=== PATIENT | female | born 1950 | race African-American/Black ===

== ENCOUNTER 2016-10-25 08:12 | Emergency (ER) ==
--- NOTE | 2016-10-25 09:09 | PROVIDER DOCUMENTATION ---
HPI-Headache - General Source: patient, family - History of Present Illness-Headache Headache Location: reports: frontal (R), occipital (R) Quality of Pain: reports: dull Severity: reports: mild Onset/Duration: reports: 24 hours ago Timing: reports: still present, intermittent Headache Context: reports: nothing Headache History: reports: occasional headaches Any recent trauma/injury?: reports: none Headache severity at the maximum: mild Headache Exacerbated by:: reports: nothing Modifying Factors: improves with: nothing Associated Symptoms: reports: headache, neck/back pain (R side neck pain), other (R shoulder pain). denies: short of breath, decreased ability to walk or stand, fainting, dizziness, confusion, chest pain, fatigue, fever/chills, insomnia, loss of consciousness, muscle spasms, nausea, numbness in legs/feet, paresthesia, diaphoretic, ringing in ears, seizures, sleepy, slurred speech, tingling in legs/feet, trouble walking, vomiting, vision changes, weakness Similar Symptoms Previously?: Yes Recently seen or treated by another doctor?: No <Yuliet Farris - Last Filed: 10/25/16 10:01> <Luis Vincent - Last Filed: 10/25/16 10:18> - General Chief Complaint: Headache Stated Complaint: HEAD/R SHOULDER PAIN Time Seen by Provider: 10/25/16 08:58 Allergies/Adverse Reactions: Patient Allergies Allergy/AdvReac Type Severity Reaction Status Date / Time No Known Allergies Allergy Verified 10/25/16 08:29 Home Medications: Home Medication List Medication Instructions Recorded Confirmed Last Taken Type Carvedilol 12.5 mg PO BID 08/07/16 10/25/16 09/14/16 History Folic Acid 1 mg PO DAILY 08/07/16 10/25/16 09/14/16 History Furosemide [Lasix] 40 mg PO DAILY 08/07/16 10/25/16 09/14/16 History Losartan Potassium 100 mg PO DAILY 08/07/16 10/25/16 09/14/16 History Magnesium Oxide 400 mg PO DAILY 08/07/16 10/25/16 09/14/16 History PRAVAstatin [Pravachol] 40 mg PO HS 08/07/16 10/25/16 09/13/16 History Spironolactone 12.5 mg PO DAILY 08/07/16 10/25/16 09/14/16 History Amoxicillin/Potassium Clav 1 each PO BID #20 tablet 10/25/16 Unknown Rx [Augmentin 875-125 Tablet] Aspirin 81 mg PO DAILY 10/25/16 10/25/16 Unknown History Loratadine/Pse E.r. 12 Hr 1 each PO Q12HR #12 tablet 10/25/16 Unknown Rx [Claritin-D 12 Hr] Tramadol HCl [Ultram] 50 mg PO Q6-8H PRN PRN #12 tablet 10/25/16 Unknown Rx - History of Present Illness-Headache Nature of Presenting Problem: Pt is 66 y/o F presents to the ED with R frontal ORELLANA. Pt states ORELLANA radiates to occipital R side of head and down R side of neck into the R shoulder. Pt denies injury or trauma. Pt states ORELLANA started yesterday. Pt states took 2 tylenol yesterday with mild relief and 1 aspirin today. (Yuliet Farris) Review of Systems - Adult - REVIEW OF SYSTEMS - ADULT Constitutional: denies: chills, fever Eyes: denies: blurred vision, double vision Ears, Nose, Mouth & Throat: denies: ear pain, nose pain, throat pain Cardiovascular: denies: chest pain, heart murmur, irregular heart rate Respiratory: reports: cough. denies: shortness of breath, wheezing Gastrointestinal: denies: abdominal pain, diarrhea, nausea, vomiting Genitourinary: denies: dysuria, hematuria Musculoskeletal: reports: neck pain (R side of neck), other (R shoulder pain). denies: bone pain, joint pain Integumentary: denies: hives, itching Neurological: reports: headache/migraines (ORELLANA). denies: dizziness/vertigo Psychiatric: reports: no symptoms reported Endocrine: reports: no symptoms reported Hematologic/Lymphatic: reports: no symptoms reported Allergic/Immunologic: reports: no symptoms reported All Other Systems: Reviewed and Negative <Yuliet Farris - Last Filed: 10/25/16 10:01> Past History - Adult - PAST MEDICAL HISTORY-ADULT Review of Records: reports: Nursing Assessment Review, Medications Reviewed, Social history reviewed & non-contributory. Major Childhood Illnesses: reports: denies history Cardiovascular: reports: CHF, HTN, hyperlipidemia, other (mds) Respiratory: reports: sleep apnea Gastrointestinal: reports: GERD Obstetrical/Gynecological: reports: denies history Genitourinary: reports: denies history Musculoskeletal: reports: other (MDS) Neurological: reports: denies history Endocrine/Immune: reports: Diabetes, thyroid disorder Other Conditions: reports: denies history - PRIOR SURGERIES/PROCEDURES Surgical/Procedure History: reports: joint replacement - IMMUNIZATION STATUS Childhood Immunizations: See Nurse Assessment Flu Vaccine: See Nurse Assessment - FAMILY HISTORY Family History: reviewed, not pertinent - SOCIAL HISTORY Smoking: denies Substance Use: alcohol Alcohol Use Frequency: occasionally Number of drinks per typical drinking period:: 2 drinks Living Situation: family <Yuliet Farris - Last Filed: 10/25/16 10:01> Physical Exam- Neurological - Physical Exam-Neuro Initial Vital Signs Reviewed: Yes General Appearance: appears well, alert, no apparent distress Eye Exam: bilateral eye: normal inspection, PERRL, EOMI HENMT: normocephalic/atraumatic, moist mucous membranes, normal ENT inspection, TMs normal, pharynx normal Head Injury: no evidence of injury Neck: non-tender, full range of motion, supple, normal inspection Respiratory: chest non-tender, lungs clear, normal breath sounds, no pleuratic chest pain, no respiratory distress, no accessory muscle use Cardiovascular: normal peripheral pulses, regular rate, rhythm, no edema, no gallop, no JVD, no murmur Abdominal Exam: normal bowel sounds, non tender, soft, no organomegaly, no pulsatile mass Lymphatic: no adenopathy Extremity: normal range of motion, non-tender, no calf tenderness, normal capillary refill, swelling (bilateral legs) 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: normal hearing, normal speech, PERRL Motor/Sensory: no motor deficit, no sensory deficit, no pronator drift Neurologic: grossly normal, other (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) Integumentary: normal color, normal turgor, warm/dry Psych/Mental Status: normal mood/affect, oriented x 3 <Yuliet Farris Last Filed: 10/25/16 10:01> Progress - XRAY 1 XRAY: Bilateral XRAY Study: Chest Impression: Abnormal XRAY Interpretation: lingular atelectasis, cmg - CT/MRI 1 CT Study: Head Impression: Abnormal CT Results: 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, rt mastoid and middle ear effusion <Yuliet Farris Filed: 10/25/16 10:01> <Luis Vincent - Last Filed: 10/25/16 10:18> - PLAN OF CARE/RESULTS Progress/Plan/Lab Results: Orders Category Date Time Status CHEST-1 VIEW [RAD] Stat Exams 10/25/16 08:58 Ordered HEAD W/O CONTRAST [CT] Stat Exams 10/25/16 08:58 Ordered Vital Signs - 24 hr 10/25/16 08:25 Pulse Rate 88 Respiratory 18 Rate Blood Pressure 115/81 O2 Sat by Pulse 97 Oximetry (Yuliet Farris) Departure <Yuliet Farris - Last Filed: 10/25/16 10:01> - Departure Time of Disposition Order: 10:12 Certified Medical Emergency: Emergent <Luis Vincent - Last Filed: 10/25/16 10:18> - Departure DIAGNOSIS: Otitis media with effusion Qualifiers: Laterality: right Qualified Code(s): H65.91 - Unspecified nonsuppurative otitis media, right ear Mastoiditis Qualifiers: Laterality: right Qualified Code(s): H70.91 - Unspecified mastoiditis, right ear Disposition: HOME 01 Condition: Good Additional Instructions: ED Follow Up Instructions: You have been treated by a care provider in the Emergency Department. These instructions are being provided to you so you can have an understanding of how to care for yourself upon discharge. Upon discharge from the Emergency Department, you are responsible for making arrangements for follow-up care by a physician of your choice. Take all prescribed medications as directed. Return to the Emergency Department immediately for any new or worsening symptoms. You may call the Physician Referral phone number at [phone] to obtain a list of Physicians who are taking new patients. Prescriptions: Amoxicillin/Potassium Clav [Augmentin 875-125 Tablet] 1 each PO BID #20 tablet Loratadine/Pse E.r. 12 Hr [Claritin-D 12 Hr] 1 each PO Q12HR #12 tablet Tramadol HCl [Ultram] 50 mg PO Q6-8H PRN PRN #12 tablet PRN Reason: Pain Referrals: Car Crisostomo MD [Primary Care Provider] - Instructions: Otitis Media with Effusion Attestation - Scribe Verification/Attestation Scribe:: Yuliet Farris Acting as Scribe for:: Luis Vincent Scribe documention review:: This chart was documented by a scribe and accurately reflects the service the provider performed and the decisions made by the provider. <Yuliet Farris - Last Filed: 10/25/16 10:01> Physician Attestation - Physician Attestation I, the provider, attest to the following statement:: Luis Vincent Physician documentation Attestation:: This documentation recorded by the scribe accurately reflects the service I personally performed and the decisions made by me. <Luis Vincent - Last Filed: 10/25/16 10:18>
--- NOTE | 2016-10-25 10:07 | Diag Imaging Result Document ---
PROCEDURE NAME: CHEST-1 VIEW - 10/25/2016 PA CHEST: FINDINGS: There is atelectasis in the lingula which was not present on 09/14/2016. Otherwise, there has been no significant change. IMPRESSION: Lingular atelectasis.
--- NOTE | 2016-10-25 10:24 | Diag Imaging Result Document ---
PROCEDURE NAME: HEAD W/O CONTRAST - 10/25/2016 CT OF THE HEAD WITHOUT CONTRAST: FINDINGS: There are calcifications in the vertebral and internal carotid arteries bilaterally. There is a large area of encephalomalacia in the right frontal region. There is no evidence of bleed or abnormal extra-axial fluid collection. There are no previous studies. There is a mucous retention cyst in the right sphenoid sinus. There are no air fluid levels. There is effusion throughout much of the mastoid air cells on the right and there is fluid in the middle ear cavity. The calvarium appears to be intact. IMPRESSION: No evidence of acute intracranial disease. Old ischemic change as described. Right mastoid effusion and otitis media.
[2016-10-25 10:37] VITALS: BP 147/74
== END 2016-10-25 10:37 | disposition home or self-care (01) ==
LOC: P.ED 08:12
DX: H65.91 Unspecified nonsuppurative otitis media, right ear (principal); H70.91 Unspecified mastoiditis, right ear; R51 Headache; M54.2 Cervicalgia; M25.511 Pain in right shoulder; R22.43 Localized swelling, mass and lump, lower limb, bilateral; I50.9 Heart failure, unspecified; I10 Essential (primary) hypertension; Z79.899 Other long term (current) drug therapy; E78.5 Hyperlipidemia, unspecified; E11.9 Type 2 diabetes mellitus without complications; Z79.82 Long term (current) use of aspirin; Z96.60 Presence of unspecified orthopedic joint implant
CPT/HCPCS: 70450; 71010

== ENCOUNTER 2016-11-23 02:48 | Observation (INO) ==
[2016-11-23 03:47] LABS: MANUAL DIFF NEEDED? NO
[2016-11-23 03:49] LABS: BASO% 0.6 % (0.0-0.8); EOS# 0.09 X1000 (0.0-0.7); EOS% 1.4 % (0.0-10.0); HEMATOCRIT 31.2 % (37.0-47.0); HEMOGLOBIN 9.7 g/dL (12.0-16.0); IMM GRAN# 0.02 X1000 (0.0-0.04); IMM GRAN% 0.3 % (0.0-0.5); LYMPH# 2.23 X1000 (1.2-3.4); MCH 26.4 PG (27-31); MCHC 31.1 g/dL (33-37); MONO# 0.58 X1000 (0.11-0.59); MONO% 9.1 % (1.7-9.3); MPV 9.4 FL (7.4-10.4); NEUT% 53.6 % (42.2-75.2); PLT 164 X1000 (130-400); RBC 3.67 XMIL (4.2-5.4)
--- NOTE | 2016-11-23 03:57 | EKG Report ---
Test Performed on : 11/23/2016 03:43:14 AM Test Reason : cough, sob Blood Pressure : / mmHG Vent. Rate : 104 BPM Atrial Rate : 104 BPM P-R Int : 164 ms QRS Dur : 114 ms QT Int : 358 ms P-R-T Axes : 059 -21 141 degrees QTc Int : 470 ms Sinus tachycardia. Anterior infarct , age undetermined T wave abnormality, consider lateral ischemia Abnormal ECG When compared with ECG of 03-NOV-2016 23:22, No significant change was found Unconfirmed Result
[2016-11-23 04:03] LABS: ALBUMIN 3.7 g/dL (3.5-5.0); CALCIUM 8.8 mg/dL (8.8-10.2); POTASSIUM 4.2 mmol/L (3.5-5.1); TOTAL BILIRUBIN 0.5 mg/dL (0.20-1.00); TOTAL PROTEIN 8.2 g/dL (6.3-8.3)
--- NOTE | 2016-11-23 04:25 | PROVIDER DOCUMENTATION ---
HPI-Cardiac General - General Chief Complaint: Cough Stated Complaint: UNCONTROLABLE COUGH/HEART PATIEN Time Seen by Provider: 11/23/16 04:18 Source: patient, family Allergies/Adverse Reactions: Patient Allergies Allergy/AdvReac Type Severity Reaction Status Date / Time No Known Allergies Allergy Verified 10/25/16 08:29 Home Medications: Home Medication List Medication Instructions Recorded Confirmed Last Taken Type Folic Acid 1 mg PO DAILY 08/07/16 11/23/16 09/14/16 History Magnesium Oxide 400 mg PO DAILY 08/07/16 11/23/16 09/14/16 History PRAVAstatin [Pravachol] 40 mg PO HS 08/07/16 11/23/16 09/13/16 History Spironolactone 25 mg PO DAILY 08/07/16 11/23/16 09/14/16 History Aspirin 81 mg PO DAILY 10/25/16 11/23/16 Unknown History Levothyroxine [Synthroid] 100 microgm PO DAILY@0700 11/23/16 11/23/16 Unknown History Losartan/Hydrochlorothiazide 1 each PO DAILY 11/23/16 11/23/16 Unknown History [Losartan-Hctz 100-12.5 mg Tab] Mirtazapine [Remeron] 15 mg PO QHS 11/23/16 11/23/16 Unknown History Carvedilol [Coreg] 12.5 mg PO DAILY #90 tablet 11/26/16 Unknown Rx - History of Present Illness-Cardiac Nature of Presenting Problem: has had prolonged coughing loosing her breath hx ckdz and hx chfdz nochest pain soft pitting edema in lower extremities Quality of Pain: reports: none Onset/Duration: last night Timing: improving Context/Activities at Onset: reports: sleep Modifying Factors: worse with: movement Recent use of:: reports: no stimulants Nitro Today/Relief: reports: no nitro taken today Aspirin Treatment Today: reports: no aspirin today Prior Chest Pain/Cardiac Workup: reports: echocardiography, stress test Associated Symptoms: reports: edema, shortness of breath, weakness Similar Symptoms Previously?: Yes Recently Seen Here or By Another Healthcare Provider: Yes Review of Systems - Adult - REVIEW OF SYSTEMS - ADULT Constitutional: reports: no symptoms reported, weight gain Eyes: reports: no symptoms reported, dry eyes Cardiovascular: reports: edema, heart murmur, orthopnea Respiratory: reports: cough, dyspnea on exertion, shortness of breath. denies: hemoptysis, pleurisy Gastrointestinal: reports: no symptoms reported Genitourinary: reports: no symptoms reported Musculoskeletal: reports: no symptoms reported Integumentary: reports: no symptoms reported Neurological: reports: no symptoms reported Psychiatric: reports: no symptoms reported Endocrine: reports: no symptoms reported Hematologic/Lymphatic: reports: no symptoms reported Allergic/Immunologic: reports: no symptoms reported Past History - Adult - PAST MEDICAL HISTORY-ADULT Review of Records: reports: Nursing Assessment Review, Medications Reviewed, Social history reviewed & non-contributory. Major Childhood Illnesses: reports: denies history Cardiovascular: reports: CHF, HTN, hyperlipidemia, other (mds) Respiratory: reports: sleep apnea Gastrointestinal: reports: GERD Obstetrical/Gynecological: reports: denies history Genitourinary: reports: denies history, kidney disease Musculoskeletal: reports: other (MDS) Neurological: reports: denies history Psychiatric: reports: denies history Endocrine/Immune: reports: Diabetes, thyroid disorder Other Conditions: reports: denies history - PRIOR SURGERIES/PROCEDURES Surgical/Procedure History: reports: joint replacement (L hip/pelvis) - IMMUNIZATION STATUS Childhood Immunizations: See Nurse Assessment Flu Vaccine: See Nurse Assessment - FAMILY HISTORY Family History: reviewed, not pertinent - SOCIAL HISTORY Smoking: non-smoker Substance Use: none/never Alcohol Use Frequency: never Physical Exam-General - PHYSICAL EXAM-ADULT Initial Vital Signs Reviewed: Yes - CONSTITUTIONAL General Appearance: appears well, alert, no apparent distress - EYES Eyes: PERRL/EOMI, pink conjunctivae - HEAD, EARS, NOSE, MOUTH & THROAT HENMT: normocephalic/atraumatic - NECK Neck: supple - RESPIRATORY Respiratory: decreased breath sounds, rhonchi, increased rate - CARDIOVASCULAR Cardiovascular: normal peripheral pulses, regular rate, rhythm - GASTROINTESTINAL (ABDOMEN) Abdominal Exam: soft - LYMPHATIC Lymphatic: no adenopathy - MUSCULOSKELETAL Back Exam: normal inspection Extremity: pedal edema, swelling - SKIN Integumentary: normal color, normal turgor - NEUROLOGIC Neurologic: grossly normal - PSYCHIATRIC Psych/Mental Status: normal mood/affect Progress - PLAN OF CARE/RESULTS Result Diagrams: 11/26/16 06:00 11/26/16 06:00 - EKG 1 Time of EKG reading by physician:: 04:45 EKG Read and Signed by:: Car Crisostomo EKG Interpretation (*Must complete 3 of following elements*): Abnormal Rate: 104 [place]: normal QRS: poor R wave progression FL Interval: normal ST Wave: non-specific ST changes Prior EKG Comparison: no prior EKG - XRAY 1 XRAY Study: Chest Impression: Abnormal (CHF, CARDIOMEGALY) Departure - Departure Time of Disposition Decision: 07:32 DIAGNOSIS: Shortness of breath, Weakness, Anemia Disposition: ADMITTED INPATIENT 09 Certified Medical Emergency: Emergent Condition: Good
[2016-11-23] MEDS ORDERED: LASIX IV ONE ×2 (04:28→20:37)
[2016-11-23 06:23] LABS: BILIRUBIN URINE NEGATIVE (NEGATIVE); BLOOD URINE 4+ (NEGATIVE); CLARITY VERY CLOUDY (CLEAR); COLOR YELLOW; GLUCOSE URINE NEGATIVE (NEGATIVE); LEUKOCYTES URINE 2+ (NEGATIVE); NITRITE URINE NEGATIVE (NEGATIVE); PROTEIN URINE TRACE mg/dL (NEGATIVE); SP GRAVITY URINE 1.015; UROBILINOGEN URINE NORMAL
[2016-11-23 06:26] LABS: URINE CULTURE PL NEEDED? YES; URINE EPITHELIAL CELLS <10 /HPF (<10); URINE RBC TNTC /HPF (<10)
[2016-11-23] MEDS ORDERED: NS 1,000 ML IV ONE (06:26)
[2016-11-23 06:27] LABS: URINE SOURCE CATH
[2016-11-23] MEDS ORDERED: ALDACTONE PO ONE (07:38)
[2016-11-23] MEDS ORDERED: MAG-OX PO ONE (07:38)
[2016-11-23] MEDS ORDERED: COREG PO ONE (07:38)
[2016-11-23] MEDS ORDERED: PRAVACHOL PO ONE (07:38)
[2016-11-23] MEDS ORDERED: COZAAR PO ONE (07:38)
[2016-11-23] MEDS ORDERED: ASPIRIN PO ONE (07:38)
--- NOTE | 2016-11-23 09:08 | Diag Imaging Result Document ---
PROCEDURE NAME: CHEST-PORTABLE - 11/23/2016 AP PORTABLE CHEST ERECT, 11/23/2016 AT 0322 HOURS: FINDINGS: There is cardiomegaly. The inspiration is less optimal than on 11/04/2016. This is probably responsible for any change in the appearance of the lungs. IMPRESSION: Poor inspiration. Cardiomegaly.
[2016-11-23] MEDS ORDERED: NS 1,000 ML ONE (09:36)
[2016-11-23] MEDS ORDERED: HALL'S COUGH LOZENGE MT PRN (19:13)
[2016-11-23] MEDS: REMERON PO SCH (21:30)
[2016-11-23] MEDS: PRAVACHOL PO SCH (21:30)
[2016-11-24] MEDS: SYNTHROID PO SCH (06:16)
[2016-11-24] MEDS ORDERED: HYDROCHLOROTHIAZIDE PO SCH (09:00)
[2016-11-24] MEDS ORDERED: LOSARTAN PO SCH (09:00)
[2016-11-24] MEDS ORDERED: CIPRO PO SCH (09:15)
[2016-11-24] MEDS: FOLIC ACID PO SCH (10:39)
[2016-11-24] MEDS: COZAAR PO SCH (10:39)
[2016-11-24] MEDS: MAG-OX PO SCH (10:40)
[2016-11-24] MEDS: ASPIRIN PO SCH (10:40)
[2016-11-24] MEDS: ALDACTONE PO SCH (10:40)
[2016-11-24] MEDS: HYDROCHLOROTHIAZIDE PO SCH (10:40)
[2016-11-24] MEDS: COREG PO SCH (10:40)
--- NOTE | 2016-11-24 10:42 | Diag Imaging Result Document ---
PROCEDURE NAME: CHEST-2 VIEWS - 11/24/2016 CHEST, TWO VIEWS: COMPARISON: 11/23/2016. FINDINGS: There is mild cardiomegaly, consistent with cardiomyopathy of pericardial effusion, unchanged from multiple prior studies. The pulmonary vasculature is not congested. There is stable linear fibrosis, left midlung zone. No focal consolidation, effusion, or pneumothorax is identified. IMPRESSION: Stable chest with left fibrosis and marked cardiomegaly.
[2016-11-24 12:33] LABS: ALBUMIN 3.7 g/dL (3.5-5.0); CALCIUM 9.1 mg/dL (8.8-10.2); POTASSIUM 4.4 mmol/L (3.5-5.1); TOTAL BILIRUBIN 1.1 mg/dL (0.20-1.00); TOTAL PROTEIN 8.2 g/dL (6.3-8.3)
[2016-11-24 17:03] LABS: BE 1.3 mmoll (-3.0-3.0); BLOOD TYPE ARTERIAL; METHB 1.2 % (0.0-1.5); O2(CT) 13.1 mL/dL (15.0-23.0); PCO2(98.6) 32 mmHg (35-45); PO2(98.6) 82 mmHg (60-100); SAMPLE BLOOD; SAO2 97.8 % (95.0-100.0); THB 9.8 g/dL (11.5-17.4); pH(98.6) 7.49 (7.35-7.45)
[2016-11-24 17:09] LABS: ALLEN TEST YES; DRAW SITE R RADIAL; MODALITY ROOM AIR
[2016-11-24] MEDS: REMERON PO SCH (21:03)
[2016-11-24] MEDS: CIPRO PO SCH (21:03)
[2016-11-24] MEDS: PRAVACHOL PO SCH (21:03)
[2016-11-25] MEDS: SYNTHROID PO SCH (06:14)
[2016-11-25] MEDS ORDERED: TYLENOL PO ONE (06:24)
[2016-11-25] MEDS: HYDROCHLOROTHIAZIDE PO SCH (09:35)
[2016-11-25] MEDS: ASPIRIN PO SCH (09:35)
[2016-11-25] MEDS: FOLIC ACID PO SCH (09:35)
[2016-11-25] MEDS: COZAAR PO SCH (09:35)
[2016-11-25] MEDS: ALDACTONE PO SCH (09:35)
[2016-11-25] MEDS: MAG-OX PO SCH (09:35)
[2016-11-25] MEDS: CIPRO PO SCH ×2 (09:35→21:35)
[2016-11-25] MEDS: COREG PO SCH (09:36)
[2016-11-25 13:21] LABS: ALBUMIN 3.6 g/dL (3.5-5.0); CALCIUM 8.9 mg/dL (8.8-10.2); POTASSIUM 3.8 mmol/L (3.5-5.1); TOTAL BILIRUBIN 1.1 mg/dL (0.20-1.00); TOTAL PROTEIN 7.9 g/dL (6.3-8.3)
[2016-11-25] MEDS ORDERED: NS 500 ML IV SCH (17:13)
[2016-11-25] MEDS: PRAVACHOL PO SCH (21:35)
[2016-11-25] MEDS: REMERON PO SCH (21:35)
[2016-11-26] MEDS: SYNTHROID PO SCH (06:06)
[2016-11-26 06:22] LABS: HEMATOCRIT 29.4 % (37.0-47.0); MCH 25.9 PG (27-31); MCHC 30.6 g/dL (33-37); MCV 84.7 FL (81-99); MPV 10.1 FL (7.4-10.4); RBC 3.47 XMIL (4.2-5.4)
[2016-11-26 06:29] LABS: HEMOGLOBIN A1C 4.8 % (4.8-6.0)
[2016-11-26 06:50] LABS: ALBUMIN 3.5 g/dL (3.5-5.0); MAGNESIUM 2.2 mg/dL (1.5-2.7); POTASSIUM 3.5 mmol/L (3.5-5.1); TOTAL BILIRUBIN 0.5 mg/dL (0.20-1.00)
[2016-11-26] MEDS: MAG-OX PO SCH (09:53)
[2016-11-26] MEDS: COZAAR PO SCH (09:53)
[2016-11-26] MEDS: ASPIRIN PO SCH (09:53)
[2016-11-26] MEDS: CIPRO PO SCH ×2 (09:53→20:22)
[2016-11-26] MEDS: HYDROCHLOROTHIAZIDE PO SCH (09:53)
[2016-11-26] MEDS: COREG PO SCH (09:53)
[2016-11-26] MEDS: FOLIC ACID PO SCH (09:54)
[2016-11-26] MEDS: ALDACTONE PO SCH (09:54)
[2016-11-26] MEDS ORDERED: TYLENOL PO PRN (09:58)
[2016-11-26 17:27] VITALS: BP 127/71
[2016-11-26] MEDS: REMERON PO SCH (20:22)
[2016-11-26] MEDS: PRAVACHOL PO SCH (20:22)
--- NOTE | 2016-12-10 07:43 | HISTORY AND PHYSICAL ---
An ER admission, who presented to the ER complaining of cough primary, brought in by her family. She states that she has been having a cough that is prolonged, hard to interrupt, causing her to lose her breath. She has a history of hypertension, chronic kidney disease, and heart failure. She denies any chest pain. She has been swelling some in her lower extremities. This is all pretty much started the night before her presentation while she was asleep. Her breathing is worse with activity. She has had spells similar to this in the past. She has had multiple workups for ischemia. She has had treadmills and echos. Primarily has a an ejection fraction in the 20s and GFR in the 20s likewise. She also is anemic. All these add up. She is a nonsmoker. While she was in the emergency room she had an electrocardiogram that showed a heart rate of 104, normal axis, poor R-wave progression, nonspecific ST-segment changes. Her chest x-ray was abnormal with cardiomegaly and pulmonary congestion. She was noted to be anemic with a hematocrit of 29.4, white count 7100, platelet count was 127,000. Her electrolytes were sodium of 138, potassium 3.5, chloride 104, CO2 of 23, BUN 55, creatinine 2.2, with a glucose of 98. So it is felt that with combination bone marrow issues and renal insufficiency, congestive failure issues are all contributing to her cough and she was admitted from the emergency room. REVIEW OF SYSTEMS: General Appearance: She has had some recent weight gain, but no fever or chills. Eyes: Vision no change in visual acuity. She has no irritation in her eyes. Cardiovascular: She has no history of a murmur, edema, orthopnea, paroxysmal nocturnal dyspnea, dyspnea on exertion. Respiratory: No cough. She denies any hemoptysis or pleurisy. Gastrointestinal: No nausea, vomiting, diarrhea, or constipation. Genitourinary: No dysuria, hematuria, polyuria, or pyuria. Musculoskeletal: No back pain, joint aches, joint swelling, or gout. Skin: No skin rashes or lesions. Neurological: No focal deficits. No history of seizures. No syncope. No migraines. Psychiatric: Negative. Endocrine: No polyuria, polydipsia, polyphagia. No heat or cold intolerance. Hematological: She has a chronic anemia, which is probably myelodysplasia. ALLERGIES: No asthma. No hayfever symptoms. PAST MEDICAL HISTORY: She has a history of congestive heart failure, hypertension, dyslipidemia, sleep apnea, reflux disease, kidney renal insufficiency, and myelodysplasia. She also has diabetes and thyroid condition. She has had a joint replacement in her left hip in the past. She is a nonsmoker and nondrinker. Does not abuse substances. FAMILY HISTORY: Not pertinent. PHYSICAL EXAMINATION: HEENT: On admission her head was normocephalic. Eyes were pupils equal, round, and reactive to light and accommodation. Extraocular movements intact. SC was pale. Nares patent. TMs intact. She was normocephalic. NECK: Supple without jugular venous distention. Midline trachea. No lymphadenopathy. No thyromegaly. RESPIRATORY: She had diminished breath sounds and rhonchi. She was somewhat tachypneic. EXTREMITIES: Peripheral pulses were intact. Diminished somewhat in her legs. CARDIOVASCULAR: Regular rate was appreciated in her pulse and rhythm. ABDOMEN: Soft. No hepatosplenomegaly. No costovertebral angle tenderness. EXTREMITIES: Negative for clubbing or cyanosis. She 2+ edema. LYMPHATICS: Negative. SKIN: Clear. NEUROLOGICAL EXAMINATION: Was nonfocal and normal. ADMISSION DIAGNOSES: 1. Generalized weakness. 2. Renal insufficiency. 3. Heart failure. 4. Anemia from myelodysplasia. 5. High blood pressure. 6. Diabetes. 7. Thyroid disease. cc: Car Crisostomo MD
--- NOTE | 2016-12-10 08:01 | DISCHARGE SUMMARY ---
ADMISSION DATE: 11/23/2016 DISCHARGE DATE: 11/26/2016 The patient was hospitalized after presenting to the emergency room complaining of some difficulty breathing and coughing primarily, unassociated with fever or chills. Has some edema. She has a background of renal insufficiency with a GFR in the 20s. She has also a history of systolic heart failure with an ejection fracture likewise in the 20s. She has chronic anemia from myelodysplastic syndrome. She also has a history of hypertension, dyslipidemia, and thyroid disease. In the ER, she had cardiomegaly. She had some pulmonary venous hypertension. So, she was admitted for therapy. Her reports included the following: She had a chest x-ray on admission that showed poor inspiration and cardiomegalia. She has an electrocardiogram on admission which showed a sinus tachycardia of 104, poor R-wave progression across the precordium, nonspecific ST-T wave changes, unchanged from previous electrocardiograms. Her followup chest x-ray on 11/24 revealed stable chest with left fibrosis, marked cardiomegaly. Her microbiology she grew out Klebsiella pneumoniae and a urine culture universally sensitive to all antibiotics, except ampicillin. Her white count was 6380, hematocrit was 31.2. Her differential with 53 polys, 35 lymphocytes, and 9% monos. Followup on 11/26 hematocrit was 29.4, white count was 7100, platelet count was 127,000. Blood gases pH was 7.49, pCO2 32, pO2 82 on room air. Carboxyhemoglobin was 2.4. Chemistries when she arrived, she was prerenal with a BUN of 55, creatinine is 2.2. Her CO2 was 23. Anion gap is 11. Sodium was 138, potassium 3.5, chloride 104, glucose 98. She had a B-type natriuretic peptide of 16,414. Had mild liver elevation. AST was 46, alkaline phosphatase was 198. Proteins were negative. Magnesium was 2.2. Throughout the stay her renal function was elevated, and with diuresing. Got up to 55/2.2, starting out when she presented at 36.19. Her medications on admission were as follows: She is given Lasix 40 p.o. IV and was given it IV on a daily basis. She was continued on her Coreg, 100 mcg of levothyroxine, losartan 112 5, spironolactone, and aspirin. She was taking Cipro 250 for her urinary tract infection. She was just generally weak. The increased diuresis did not really seem to make much difference. I think she was simply probably over-diuresed and was weak on that basis. We have spoken to her and Dr. Melton about proceeding and evaluating her for dialysis. She was discharged on some antibiotics to take for her urinary tract infection. Will follow up in the office. I have advised her to leave off her Lasix. We will see what she does in a couple days. cc: Car Crisostomo MD
== END 2016-11-26 20:30 | disposition home or self-care (01) ==
LOC: P.ED 02:48 → P.MEDSURG 02:48
PROVIDERS: ADMIT Internal Medicine; ATTEND Internal Medicine

== ENCOUNTER 2018-12-09 07:31 | Inpatient (IN) ==
[2018-12-09] MEDS ORDERED: DIPRIVAN 1% ONE (07:34)
[2018-12-09] MEDS ORDERED: QUELICIN (DOSE) ONE (07:38)
[2018-12-09] MEDS ORDERED: ZEMURON ONE (07:39)
[2018-12-09] MEDS ORDERED: LR 500 ML ONE (07:58)
[2018-12-09] MEDS ORDERED: KEFZOL 2 GM/D5W 2 GM/50 ML IVPB ONE (07:59)
[2018-12-09] MEDS ORDERED: SENSORCAINE-MPF 0.5%/EPI 1:200,000 ONE (08:49)
[2018-12-09] MEDS ORDERED: LR 1,000 ML ONE (08:49)
[2018-12-09] MEDS ORDERED: SODIUM CHLORIDE 0.9% ONE (08:49)
[2018-12-09] MEDS ORDERED: AMIDATE ONE (09:17)
[2018-12-09] MEDS ORDERED: ZOFRAN ONE (09:41)
[2018-12-09] MEDS ORDERED: OFIRMEV 1000 MG/ISOTONIC SOLN 1,000 MG/100 ML BOTTLE ONE (09:41)
[2018-12-09] MEDS ORDERED: EPHEDRINE ONE (09:42)
[2018-12-09] MEDS ORDERED: NEO-SYNEPHRINE ONE (09:57)
[2018-12-09] MEDS ORDERED: SODIUM CHLORIDE 0.9% 10 ML ONE (09:57)
[2018-12-09] MEDS ORDERED: ROBINUL ONE (10:37)
[2018-12-09] MEDS: MORPHINE ONE ×2 (11:47→11:56)
[2018-12-09] MEDS ORDERED: ZOFRAN IV PRN (12:27)
--- NOTE | 2018-12-09 12:55 | Diag Imaging Result Doc PS360 ---
EXAM: OPERATIVE CHOLANGIOGRAM INDICATION: CHOLECYSTITIS TECHNIQUE: COMPARISON: None. FINDINGS: Two spot fluoroscopic images of the opacified common bile duct were provided, which were performed during cholecystectomy by Dr. Giancarlo Muse. The common bile duct appears normal in course and caliber. No stricture or filling defect is identified. IMPRESSION: As above. Please correlate with live fluoroscopic imaging. Electronically signed by Andrew Cardenas 12/09/2018 12:53 PM
--- NOTE | 2018-12-09 18:51 | OPERATIVE NOTE ---
PROCEDURE DATE: 12/09/2018 PREOPERATIVE DIAGNOSIS: Symptomatic cholelithiasis. POSTOPERATIVE DIAGNOSIS: Symptomatic cholelithiasis and chronic cholecystitis. PROCEDURE PERFORMED: Laparoscopic cholecystectomy with cholangiogram. ESTIMATED BLOOD LOSS: 10 mL. SPECIMENS: Gallbladder. ANESTHESIA: General. INDICATION: This is a 68-year-old female who has had epigastric right upper quadrant abdominal pain and nausea for some time. Imaging showed gallstones. OPERATIVE FINDINGS: There was a densely inflamed gallbladder with thickened rind but very thin walled. The gallbladder itself had numerous large stones within it. On cholangiogram, the most opacified image failed to save. There were some other spot images obtained after decannulating the cystic duct for documentation purposes, but findings showed a very long cystic duct that seemed to originate off of the right hepatic duct with flow of contrast through a normal caliber bile duct and into the duodenum with no filling defects. Retrograde flow in the common hepatic duct was normal. OPERATIVE NOTE: Risks, benefits and alternatives were discussed with patient. She consented to the procedure. She was seen preoperatively. Surgical site was confirmed. She was taken to the operating room, placed in supine position. General anesthesia induced without complication. All bony prominences were padded. Her abdomen was prepped with chlorhexidine solution, draped in usual fashion. After time-out, we made a supraumbilical incision, carried this down to the fascia. The fascia was incised and entered in a controlled fashion. The abdomen was insufflated with 15 mmHg. She tolerated this. Three additional trocars of 5 mm were placed, one in the epigastrium, one in midclavicular line off the costal margin. We took down omental adhesions, took quite amount of time to expose the gallbladder, but we were able to retract it cephalad. We then scored the peritoneum, which was very thickened, exposing the infundibulum and retracting this. Hole was made in the infundibulum, but this did allow us to inspect within the lumen of the gallbladder. We continued to retract this down the patient's right and were able to encircle the infundibulum and performed a cholangiogram through this. We were well away from the common bile duct, and this corroborated with her gross anatomy, and we at this point transected the infundibulum of the gallbladder, closing this stump with an Endo loop. This was where the cholangiogram was performed through. Then placed a clip over this to doubly close it and also to niko where she had developed a bile leak. We could confirm its location from the cystic duct stump and then removed the gallbladder. There was some spillage of bile. It was suctioned until clear. We collected the stones. There were mainly 2 large stones that we collected. Placed in an EndoCatch bag. We copiously irrigated the abdomen. There was no obvious bile leakage. We elected to place a Phil drain here, and hemostasis was noted. We removed the remaining trocars, deflated them and brought the gallbladder out through the umbilical incision. We did have to enlarge this slightly to get the stones out. We closed the fascia with interrupted 0 Vicryl sutures. Skin was closed with 4-0 Monocryl. Drain was clear at the end of the case. We will plan to admit her given her cardiac history and the acutely inflamed nature of her gallbladder. cc: Lavon Muse MD
[2018-12-09] MEDS: BETAPACE PO SCH (20:54)
[2018-12-09] MEDS: PRAVACHOL PO SCH (20:54)
[2018-12-09] MEDS: COREG PO SCH (20:54)
[2018-12-09] MEDS: PERIDEX MT SCH (20:56)
[2018-12-10 01:22] LABS: URINE SOURCE CLEAN CATCH
[2018-12-10 01:25] LABS: BILIRUBIN URINE NEGATIVE (NEGATIVE); BLOOD URINE NEGATIVE (NEGATIVE); COLOR YELLOW; GLUCOSE URINE NEGATIVE (NEGATIVE); KETONE URINE NEGATIVE (NEGATIVE); LEUKOCYTES URINE SMALL (NEGATIVE); NITRITE URINE NEGATIVE (NEGATIVE); PROTEIN URINE 100 mg/dL (NEGATIVE); SP GRAVITY URINE 1.018; TURBIDITY URINE HAZY (CLEAR); UROBILINOGEN URINE NORMAL (NORMAL)
[2018-12-10 01:27] LABS: UR EPITHELIAL CELLS >10 /HPF (<10); URINE BACTERIA 2+ /HPF; URINE RBC <10 /HPF (<10); URINE WBC <10 /HPF (<10)
[2018-12-10] MEDS: SYNTHROID PO SCH (06:17)
[2018-12-10] MEDS: LOVENOX SUBQ SCH (08:47)
[2018-12-10] MEDS: COREG PO SCH ×2 (08:47→20:52)
[2018-12-10] MEDS: BETAPACE PO SCH ×2 (08:47→20:52)
[2018-12-10] MEDS: PERIDEX MT SCH ×2 (08:48→20:52)
[2018-12-10] MEDS: LANOXIN PO SCH (08:48)
[2018-12-10] MEDS: MAG-OX PO SCH (08:48)
[2018-12-10] MEDS: ALDACTONE PO SCH (08:48)
--- NOTE | 2018-12-10 09:37 | GENERAL SURGERY PROGRESS NOTE ---
DATE: 12/10/2018 SUBJECTIVE: Doing okay overnight. Hemodynamically stable. She did have some urinary retention requiring straight catheterization with 500 mL noted. OBJECTIVE: Abdomen is soft. STACI drain serosanguineous. ASSESSMENT/PLAN: A 68-year-old female status post laparoscopic cholecystectomy. She does have cardiomyopathy. We will monitor her today. If she is able to void, ambulate, and tolerate a diet, we will let her go home with her drain. cc: Lavon Muse MD
[2018-12-10] MEDS: NORCO-7.5 PO PRN (18:26)
[2018-12-10] MEDS: PRAVACHOL PO SCH (20:52)
[2018-12-11] MEDS: NORCO-7.5 PO PRN ×2 (02:16→21:44)
[2018-12-11] MEDS: SYNTHROID PO SCH (06:08)
[2018-12-11] MEDS: LOVENOX SUBQ SCH (08:18)
[2018-12-11] MEDS: PERIDEX MT SCH ×2 (08:18→21:45)
[2018-12-11] MEDS: ALDACTONE PO SCH (08:18)
[2018-12-11] MEDS: COREG PO SCH ×3 (08:18→21:44)
[2018-12-11] MEDS: BETAPACE PO SCH ×2 (08:18→21:44)
[2018-12-11] MEDS: MAG-OX PO SCH (08:19)
[2018-12-11] MEDS: LANOXIN PO SCH (08:19)
--- NOTE | 2018-12-11 15:16 | CONSULTATION ---
DATE OF CONSULTATION: 12/11/2018 CHIEF COMPLAINT: Urinary retention. HISTORY OF PRESENT ILLNESS: Ms. Arias is a 68-year-old with history of congestive heart failure, hypertension, chronic kidney disease, hyperlipidemia, sleep apnea, gastroesophageal reflux disease, type 2 diabetes, hypothyroidism, who presents in consultation regarding urinary retention. The patient underwent a surgery for gallstones on Sunday and has had indwelling catheter during and subsequently removed. The patient required clean intermittent catheterization twice since then, as she has had minimal urinary output. The patient urinates spontaneously, but usually has low volumes. Has had multiple bladder scans that have shown anywhere from 400 to over 500 mL of in her bladder. The patient seemingly is not emptying her bladder adequately. In talking with the patient, the patient denies ever having issues with urination recently. The patient was previously seen by a urologist and underwent stretching of her bladder. She is not sure when this was or where it was completed. The patient denies any dysuria, hematuria, kidney stones, history of recurrent urinary tract infections and overall feels like she is voiding normally. She denies constipation or difficult with defecation. Has history of T2DM. ALLERGIES: 1. Valsartan. 2. Sacubitril. MEDICATIONS: 1. Eliquis 2.5 mg b.i.d. 2. Carvedilol 25 mg daily. 3. Losartan 100 mg daily. 4. Lasix 40 mg daily. 5. Sotalol 80 mg daily. 6. Synthroid 100 mcg daily. 7. Spironolactone. 8. Promethazine. 9. Trazodone. 10. Pravastatin. 11. Magnesium oxide. PAST MEDICAL HISTORY: 1. Atrial fibrillation, on Eliquis. 2. Coronary artery disease. 3. Congestive heart failure. 4. CKD. 5. Hypertension. 6. Type 2 diabetes. 7. Hypothyroidism. PAST SURGICAL HISTORY: 1. Implanted defibrillator. 2. Left hip repair. 3. Pelvis open reduction and internal fixation. 4. Bilateral tubal ligation. 5. Laparoscopic cholecystectomy. FAMILY HISTORY: Denies family history of malignancy. SOCIAL HISTORY: Denies alcohol, tobacco, or illicit drug use. PHYSICAL EXAMINATION: Vital signs: Temperature 98.1 degrees, heart rate 57, blood pressure 85/51, oxygen saturation 94% on room air. General: No acute distress. Resting comfortably in bed, alert and oriented x3. Respiratory: Good respiratory effort without audible wheezing or rales. HEENT: Normocephalic, atraumatic. Pupils equal, round, reactive to light. The patient does have lateral deviation of her right eye. Neck: Trachea midline without obvious deformities. Cardiovascular: S1, S2 heart sound with regular rate and rhythm. Abdomen: Soft, nontender, nondistended. No palpable masses. Phil drain in place coming from the right upper quadrant. Multiple laparoscopic incisions visualized. Genitourinary: No suprapubic tenderness. No CVA tenderness. Musculoskeletal: Moving all extremities. The patient does have 2+ lower extremity edema to below the knee. Neurologic: Grossly motor and sensory intact. LABORATORY DATA: The patient has a baseline creatinine 1.8 to 1.9. Urinalysis from catheterization 50 of protein, negative blood, negative nitrites, negative glucose, small amount of leukocytes and 2+ bacteria, greater than 10 epithelial cells. IMAGING: CT of the abdomen and pelvis reviewed from 11/06/2018, which showed no evidence of hydronephrosis, obstructing stones or renal masses. PLAN: Ms. Arias is a 68-year-old with congestive heart failure, coronary artery disease, chronic kidney disease, atrial fibrillation on Eliquis, hypothyroidism, chronic kidney disease, type 2 diabetes, who presents in consultation regarding urinary retention. The patient has required several episodes of straight catheterization since admission. After straight catheterization, the patient was unable to urinate and had PVRs measuring greater than 400 mL. The patient has required straight catheterization twice previously and still has not urinated after being straight catheterized this morning at 2 a.m. Bladder scan was performed which showed 400 mL in her bladder. Recommended placement of indwelling catheter and follow up in the outpatient setting. The patient likely has urinary retention related to being hospitalized. The patient denies any voiding complaints previously. The patient has been seen by a urologist previously for dilation of her bladder, uncertain of the etiology of this or when this was performed. The patient has no suprapubic tenderness or CVA tenderness and does not feel uncomfortable with her bladder being full. The patient may have some underlying autonomic neuropathy that is leading to urinary retention. If the patient continues to have issues with urination, would perform cystoscopy and possibly would require urodynamics for evaluation. We will have Nursing staff place catheter and will follow up in the outpatient setting. Please call with questions or concerns. cc: MD Lavon Montero MD [facility]
--- NOTE | 2018-12-11 18:11 | GENERAL SURGERY PROGRESS NOTE ---
DATE: 12/11/2018 SUBJECTIVE: Still having some urinary retention high postvoid residuals. OBJECTIVE: Abdomen is soft. Her STACI drain is serosanguineous. No fevers. No tachycardia. Blood pressure has been okay. ASSESSMENT AND PLAN: I have asked Dr. Vigil to see her in regards to her urinary retention. We will follow up his recommendations. Depending on what he finds and recommends, we will determine her disposition. Surgically she is doing well, otherwise. Tolerating a diet with serosanguineous drain. We will monitor her closely. Maybe home today or tomorrow. cc: Lavon Muse MD [facility]
[2018-12-11] MEDS: PRAVACHOL PO SCH (21:44)
[2018-12-12] MEDS: SYNTHROID PO SCH (06:05)
[2018-12-12] MEDS: NORCO-7.5 PO PRN ×2 (08:02→21:31)
[2018-12-12] MEDS: MAG-OX PO SCH (08:03)
[2018-12-12] MEDS: ALDACTONE PO SCH (08:03)
[2018-12-12] MEDS: COREG PO SCH ×2 (08:04→21:18)
[2018-12-12] MEDS: PERIDEX MT SCH ×2 (08:04→21:18)
[2018-12-12] MEDS: LOVENOX SUBQ SCH (08:04)
[2018-12-12] MEDS: BETAPACE PO SCH (08:04)
[2018-12-12] MEDS: LANOXIN PO SCH (08:04)
--- NOTE | 2018-12-12 18:27 | PROGRESS NOTE ---
DATE: 12/12/2018 SUBJECTIVE: The patient was a consult yesterday regarding urinary retention. The patient had a bladder scan done yesterday that showed 400 mL in her bladder. The patient was unable to urinate. A Fowler catheter was inserted, with a good amount of drainage overnight. The patient has made 850 mL that was recorded. The patient denies any pain with the catheter. Her urine remains clear yellow. The patient seems to be having minimal p.o. intake. She states she does not have much of an appetite. The patient is ambulatory and up to the side of the bed today. The patient denies any nausea or vomiting. OBJECTIVE: Vital signs: Temperature 98.6 degrees, heart rate 58, blood pressure 125/64, oxygen saturation 94% on room air. General: No acute distress, resting comfortably on the side of the bed. Alert and oriented x3. Respiratory: Good respiratory effort without audible wheezing or rales. Abdomen is soft, nontender. Laparoscopic incision is visualized as well as a drain present in the right upper quadrant with thin drainage. : No CVA tenderness. No suprapubic tenderness. Urethral catheter in place, draining clear yellow urine without clots. ASSESSMENT AND PLAN: Ms. Arias is a 68-year-old with atrial fibrillation, coronary artery disease, congestive heart failure, chronic kidney disease, hypertension, type 2 diabetes and hypothyroidism, who presents in evaluation regarding urinary retention. The patient required multiple in-and-out catheterizations and ultimately had a urethral catheter placed yesterday. The patient is draining good clear yellow urine since then. I recommend continue indwelling catheter for least 3 days after insertion prior to consideration for a voiding trial. I told the patient that I would leave it in over the weekend and likely have it removed in the office next week. If the patient continues with issues with urination, would have to consider cystoscopy and possible urodynamics for evaluation. This was relayed to the patient. The patient is cleared from a urology standpoint to be discharged. The patient states that she thinks she may be able to go home tomorrow from a general surgery standpoint. We will continue to monitor. Please call with questions or concerns. cc: MD Lavon Montero MD [facility]
--- NOTE | 2018-12-12 18:56 | GENERAL SURGERY PROGRESS NOTE ---
DATE: 12/12/2018 SUBJECTIVE: Doing well. She is tolerating a diet. Appetite is improving. Fowler catheter is in place. No fevers. No tachycardia. PHYSICAL EXAMINATION: Abdomen is soft. Incisions are intact. Drainage is clear. STACI drainage is serosanguineous. ASSESSMENT AND PLAN: A 68-year-old female with urinary retention status post cholecystectomy. Her family is apprehensive to take her home with a Fowler catheter. This is reasonable. We will continue current management for now. I will talk to Dr. Vigil about his plans alf. cc: Lavon Muse MD
[2018-12-12] MEDS: PRAVACHOL PO SCH (21:18)
[2018-12-13] MEDS: BETAPACE PO SCH ×3 (02:08→22:34)
[2018-12-13] MEDS: SYNTHROID PO SCH ×2 (05:08→07:18)
[2018-12-13] MEDS: MAG-OX PO SCH (09:49)
[2018-12-13] MEDS: COREG PO SCH ×2 (09:50→22:34)
[2018-12-13] MEDS: LOVENOX SUBQ SCH (09:51)
[2018-12-13] MEDS: LANOXIN PO SCH (09:51)
[2018-12-13] MEDS: ALDACTONE PO SCH (09:51)
[2018-12-13] MEDS: PERIDEX MT SCH ×2 (09:52→22:35)
[2018-12-13] MEDS: NORCO-7.5 PO PRN (10:08)
--- NOTE | 2018-12-13 12:28 | GENERAL SURGERY PROGRESS NOTE ---
DATE: 12/13/2018 SUBJECTIVE: Doing well. STACI drain serosanguineous. Abdomen is soft. Incisions are intact. Fowler is in place, functioning normally. ASSESSMENT AND PLAN: A 68-year-old female status post laparoscopic cholecystectomy. She has had some physical debility related to her age and frailty, and she has had urinary retention. We will keep her Fowler through the weekend; she is apprehensive to go home with this. She may ultimately need skilled nurse facility, but suspect we can have a void trial up to the weekend and allow her to go home without a catheter. cc: Lavon Muse MD
--- NOTE | 2018-12-13 16:27 | PROGRESS NOTE ---
DATE: 12/13/2018 SUBJECTIVE: No acute events overnight. The patient resting comfortably in bed this morning. The patient has indwelling catheter draining clear yellow urine without any hematuria or clots. The patient remains afebrile. Denies any bladder spasms. OBJECTIVE: Vital signs: Temperature 99.1 degrees, heart rate 53, blood pressure 111/55, oxygen saturation 97% on room air. General: No acute distress. Resting comfortably in bed, alert and oriented x3. Abdomen: Soft, nontender, nondistended. Respiratory: Good respiratory effort without audible wheezing or rales. Genitourinary: No suprapubic tenderness. No CVA tenderness. Urethral catheter in place draining clear yellow urine. PLAN: Ms. Arias is a 68-year-old with atrial fibrillation, chronic kidney disease, coronary artery disease, congestive heart failure, hypertension, type 2 diabetes, and hypothyroidism who presents for evaluation of urinary retention. The patient had several in and out catheterizations early in the week. Ultimately, decision was made to place an indwelling catheter. The patient has had good urinary output with clear yellow urine. Had planned for the patient to go home with urethral catheter, however patient and family are concerned about going home with catheter. I am concerned the patient likely has had long-term urinary retention and likely does not empty her bladder to completion. We tentatively plan to have her urethral catheter removed tomorrow morning for voiding trial. If the patient is unable to void, then she will have to have indwelling catheter versus clean intermittent catheterization. The patient will likley not be able to adequately catheterize herself and she would dependent on others for CIC. Likely need to consider indwelling catheter versus suprapubic tube. We will continue to monitor. Please call with questions or concerns. cc: MD Lavon Montero MD [facility]
[2018-12-13] MEDS: PRAVACHOL PO SCH (22:34)
[2018-12-14] MEDS: SYNTHROID PO SCH (06:05)
[2018-12-14] MEDS: LANOXIN PO SCH (09:24)
[2018-12-14] MEDS: COREG PO SCH ×2 (09:24→20:34)
[2018-12-14] MEDS: BETAPACE PO SCH ×2 (09:24→20:33)
[2018-12-14] MEDS: ALDACTONE PO SCH (09:24)
[2018-12-14] MEDS: PERIDEX MT SCH ×2 (09:24→20:34)
[2018-12-14] MEDS: MAG-OX PO SCH (09:24)
[2018-12-14] MEDS: LOVENOX SUBQ SCH (09:24)
--- NOTE | 2018-12-14 09:56 | PROGRESS NOTE ---
DATE: 12/14/2018 SUBJECTIVE: No acute events overnight. The patient's Fowler catheter was removed yesterday. The patient states she has voided once or twice since then. She denies any pain with urination and feels that she has been emptying her bladder. She remains afebrile. Denies any bladder spasms or pressure within her bladder. OBJECTIVE: Vital signs: Temperature 98.3 degrees, heart rate 62, blood pressure 125/70, oxygen saturation 96% on room air. General: No acute distress. Resting comfortably in bed, alert and oriented x3. Abdomen: Soft, nontender, nondistended. A STACI drain in place with clear fluid. : No suprapubic tenderness. No CVA tenderness. Musculoskeletal: Moving all extremities. ASSESSMENT AND PLAN: Ms Arias is a 68-year-old with atrial fibrillation, chronic kidney disease, coronary artery disease, congestive heart failure, hypertension, type 2 diabetes and hypothyroidism, who presents for evaluation of urinary retention. The patient has undergone a laparoscopic cholecystectomy by Dr. Muse and has had some urinary retention afterwards. The patient required several in and out catheterizations and ultimately the decision was made to place an indwelling urethral catheter due to elevated PVRs. The patient's Fowler catheter was removed last night. The patient states she has been able to void. We will obtain a PVR this morning to see how well she is emptying. If the patient is emptying adequately, likely can be discharged with no indwelling catheter. However, if patient continues to have retention, would have to consider intermittent catheterization versus indwelling catheter. My concern is the patient likely does not empty her bladder to completion. I would be okay if she held onto some urine. We will see what her PVR is today and dictate necessity for catheter following this. We will continue to monitor. Please call with questions or concerns. cc: MD Lavon Montero MD [facility]
--- NOTE | 2018-12-14 12:59 | GENERAL SURGERY PROGRESS NOTE ---
DATE: 12/14/2018 SUBJECTIVE: Feels well. Catheter is out she has voided. No fevers. No tachycardia. OBJECTIVE: Abdomen is soft. Incisions are intact. STACI drain, serosanguineous. ASSESSMENT AND PLAN: A 68-year-old female status post cholecystectomy with urinary retention postoperatively related most likely to neurogenic bladder. We will continue her void trials today and disposition pending this. Otherwise, she is doing well, tolerating a diet and recovering from her cholecystectomy. cc: Lavon Muse MD
[2018-12-14] MEDS: NORCO-7.5 PO PRN (13:12)
[2018-12-14] MEDS: PRAVACHOL PO SCH (20:34)
[2018-12-15] MEDS: NORCO-7.5 PO PRN (03:51)
[2018-12-15] MEDS: SYNTHROID PO SCH (06:00)
[2018-12-15] MEDS: BETAPACE PO SCH (09:21)
[2018-12-15] MEDS: ALDACTONE PO SCH (09:21)
[2018-12-15] MEDS: COREG PO SCH (09:21)
[2018-12-15] MEDS: PERIDEX MT SCH (09:22)
[2018-12-15] MEDS: LOVENOX SUBQ SCH (09:22)
[2018-12-15] MEDS: MAG-OX PO SCH (09:22)
[2018-12-15] MEDS: LANOXIN PO SCH (09:23)
[2018-12-15 11:40] VITALS: BP 123/72
--- NOTE | 2018-12-15 15:31 | DISCHARGE SUMMARY ---
ADMISSION DATE: 12/09/2018 DISCHARGE DATE: 12/15/2018 ADMITTING DIAGNOSIS: Symptomatic cholelithiasis. POSTOPERATIVE DIAGNOSIS: Symptomatic cholelithiasis. PROCEDURE PERFORMED: Laparoscopic cholecystectomy with cholangiogram. CONSULTANTS: Dr. Vigil with the Urology Service regarding urinary retention. HISTORY OF PRESENT ILLNESS: A 68-year-old female who has had recurrent upper GI symptoms with pain and gallstones noted on imaging. HOSPITAL COURSE: The patient was taken to the operating room on the day of her admission for above procedure. For details, please see dictated operative note. Postoperatively, she did okay. We did leave a drain given the acute inflammation and purulent nature of her gallbladder, but she recovered well. Her diet was advanced. She had some urinary retention-type symptoms with high postvoid residuals. Had a Fowler catheter placed and really this was the reason for her prolonged stay. Her Fowler was removed on the day of discharge she was able to void 450 with low postvoid residuals. She had no dysuria symptoms and was felt safe for discharge. Her drain was removed as it was serosanguineous. Incisions were intact. She had no pertinent laboratory values. DISPOSITION: Home under the care of her family. DISCHARGE CONDITION: Good. DISCHARGE INSTRUCTIONS: Were given in written and verbal format. MEDICATIONS: She will continue home medications. She was continued on prophylactic Nexium and Lovenox during her stay. Discharge restrictions were discussed. cc: Lavon Muse MD [facility]
== END 2018-12-15 13:47 | disposition home health service (06) | DRG 418 ==
LOC: 4N 07:31 → PAT 07:31 → OPS 07:31 → OBSVTOIN 11:41
PROVIDERS: ADMIT Surgery; ATTEND Surgery
CPT/HCPCS: 74300; 81001; 87088; 88304; 94761; 94799; A9270; C1751; J0131; J0330; J0690; J1650; J2270; J2370; J2405; J7120; Q9966; Q9967

== ENCOUNTER 2019-03-25 19:48 | Inpatient (IN) ==
--- NOTE | 2019-03-25 22:35 | EKG Report ---
Test Performed on : 03/25/2019 8:28:56 PM Test Reason : weakness Blood Pressure : / mmHG Vent. Rate : 075 BPM Atrial Rate : 067 BPM P-R Int : 000 ms QRS Dur : 126 ms QT Int : 372 ms P-R-T Axes : 000 -22 163 degrees QTc Int : 415 ms Atrial fibrillation. with premature ventricular or aberrantly conducted complexes. Nonspecific intraventricular block Cannot rule out Anterior infarct , age undetermined Abnormal ECG When compared with ECG of 06-NOV-2018 15:29, Atrial fibrillation. has replaced Sinus rhythm. Unconfirmed Result
[2019-03-25 22:46] LABS: URINE SOURCE CLEAN CATCH
[2019-03-25 22:46] LABS: BASO# 0.02 X1000 (0.0-0.2); BASO% 0.4 % (0.0-0.8); EOS# 0.03 X1000 (0.0-0.7); EOS% 0.6 % (0.0-10.0); HEMATOCRIT 31.3 % (37.0-47.0); HEMOGLOBIN 10.8 g/dL (12.0-16.0); LYMPH# 2.03 X1000 (1.2-3.4); LYMPH% 42.6 % (20.5-51.1); MCH 29.9 PG (27-31); MCHC 34.5 g/dL (33-37); MCV 86.7 FL (81-99); MONO# 0.41 X1000 (0.11-0.59); MONO% 8.6 % (1.7-9.3); MPV 11.6 FL (7.4-10.4); NEUT# 2.27 X1000 (1.4-6.5); NEUT% 47.8 % (42.2-75.2); PLT 105 X1000 (130-400); RBC 3.61 XMIL (4.2-5.4); RDW 15.4 % (11.5-14.5); WBC 4.76 X1000 (4.8-10.8)
[2019-03-25 23:01] LABS: BILIRUBIN URINE NEGATIVE (NEGATIVE); BLOOD URINE NEGATIVE (NEGATIVE); CLARITY CLEAR (CLEAR); COLOR YELLOW; GLUCOSE URINE NEGATIVE (NEGATIVE); KETONE URINE NEGATIVE (NEGATIVE); LEUKOCYTES URINE TRACE (NEGATIVE); NITRITE URINE NEGATIVE (NEGATIVE); PROTEIN URINE NEGATIVE (NEGATIVE); UROBILINOGEN URINE NORMAL
[2019-03-25 23:02] LABS: INR 1.84; PROTIME 22.1 Seconds (11.0-16.0)
[2019-03-25 23:03] LABS: ALBUMIN 3.8 g/dL (3.5-5.0); CALCIUM 8.5 mg/dL (8.8-10.2); CREATININE 2.7 mg/dL (0.5-0.9); POTASSIUM 4.9 mmol/L (3.5-5.1); PTT 43.2 Seconds (22.3-41.8); TOTAL BILIRUBIN 0.9 mg/dL (0.20-1.00); TOTAL PROTEIN 7.2 g/dL (6.3-8.3)
[2019-03-25 23:05] LABS: URINE BACTERIA 3+ /HFP; URINE CRYSTAL NONE SEEN /HPF; URINE EPITHELIAL CELLS >10 /HPF (<10)
[2019-03-25 23:06] LABS: URINE YEAST PRESENT /HPF
[2019-03-25] MEDS ORDERED: LASIX IV ONE (23:27)
--- NOTE | 2019-03-25 23:30 | PROVIDER DOCUMENTATION ---
This chart was entered by Karlie Pickett Scribe, acting as scribe for Rosa Renae MD. HPI-General Adult - General Chief Complaint: Weakness Stated Complaint: ABD PAIN Time Seen by Provider: 03/25/19 21:21 Source: patient Allergies/Adverse Reactions: Patient Allergies Allergy/AdvReac Type Severity Reaction Status Date / Time sacubitril [From Entresto] Allergy hallucinati Verified 12/31/18 19:27 ons valsartan [From Entresto] Allergy hallucinati Verified 12/31/18 19:27 ons Home Medications: Home Medication List Medication Instructions Recorded Confirmed Last Taken Type Magnesium Oxide 400 mg PO DAILY 08/07/16 03/26/19 03/25/19 10:00 History PRAVAstatin [Pravachol] 40 mg PO HS 08/07/16 03/26/19 03/24/19 21:00 History Spironolactone 25 mg PO DAILY 08/07/16 03/26/19 03/25/19 10:00 History Furosemide [Lasix] 1 tab PO PRN PRN 08/11/17 03/26/19 03/25/19 10:00 History Digoxin [Lanoxin] 125 microgm PO DAILY tablet 07/23/18 03/26/19 03/25/19 10:00 Rx Folic Acid 1 mg PO DAILY tablet 07/23/18 03/26/19 03/25/19 10:00 Rx Levothyroxine [Synthroid] 100 microgm PO DAILY@0700 tablet 07/23/18 03/26/19 03/25/19 10:00 Rx Apixaban [Eliquis] 2.5 mg PO BID 12/03/18 03/26/19 03/25/19 10:00 History Carvedilol [Coreg] 25 mg PO BID 12/03/18 03/26/19 03/25/19 10:00 History Losartan [Cozaar] 50 mg PO DAILY 12/03/18 03/26/19 03/25/19 10:00 History Sotalol [Betapace] 80 mg PO BID 12/03/18 03/26/19 03/25/19 10:00 History Trazodone [Desyrel] 50 mg PO QHS 12/03/18 03/26/19 03/24/19 21:00 History - History of Present Illness -Gen Adult Nature of Presenting Problems: pt is a 68 yr old female presenting with abdominal pain, weakness and swelling legs. pt reports pain as burning sensation, states "miserable feeling" in lower abdomen. pt denies any fever/chills, no nausea/vomiting/diarrhea. pt denies any chest pain or urinary complaints She endorses SOB that is worse when lying flat. She does take lasix and states that she has been taking it. She states her burning sensation in her abdomen is mostly in her suprapubic area. Location of Pain/Injury: reports: abdomen Pain Radiation: reports: no radiation Quality of Pain: reports: burning Severity: reports: moderate Onset/Duration: reports: gradual, 2 days ago Timing: reports: still present Context/Activities at Onset: reports: light activity Modifying Factors: improves with: nothing Associated Symptoms: reports: fatigue. denies: back/neck pain, chest pain, diarrhea, fever/chills, genitourinary problems, headaches, loss of appetite, nausea, vomiting Similar Symptoms Previously?: No Recently seen or treated by another doctor?: No Review of Systems - Adult - REVIEW OF SYSTEMS - ADULT Constitutional: reports: sarah. denies: chills, fever Eyes: reports: no symptoms reported Ears, Nose, Mouth & Throat: reports: no symptoms reported Cardiovascular: denies: chest pain, palpitations, syncope Respiratory: denies: cough, shortness of breath Gastrointestinal: reports: abdominal pain. denies: diarrhea, frequent heartburn, vomiting Genitourinary: reports: frequent UTI's. denies: dysuria, frequency, flank pain Musculoskeletal: denies: back pain, joint pain, neck pain Integumentary: reports: no symptoms reported Neurological: denies: dizziness/vertigo, headache/migraines, syncope Psychiatric: reports: no symptoms reported Endocrine: reports: no symptoms reported Hematologic/Lymphatic: reports: no symptoms reported Allergic/Immunologic: reports: no symptoms reported All Other Systems: Reviewed and Negative Past History - Adult - PAST MEDICAL HISTORY-ADULT Review of Records: reports: Old Records Reviewed, Nursing Assessment Review, Medications Reviewed, Social history reviewed & non-contributory. Major Childhood Illnesses: reports: denies history Cardiovascular: reports: CHF, HTN, hyperlipidemia, other (mds) Respiratory: reports: sleep apnea Gastrointestinal: reports: cholelithiasis, GERD Obstetrical/Gynecological: reports: denies history Genitourinary: reports: kidney disease Musculoskeletal: reports: other (MDS) Neurological: reports: denies history Psychiatric: reports: denies history Endocrine/Immune: reports: Diabetes, thyroid disorder Other Conditions: reports: denies history - PRIOR SURGERIES/PROCEDURES Surgical/Procedure History: reports: joint replacement (L hip/pelvis) - IMMUNIZATION STATUS Childhood Immunizations: See Nurse Assessment Flu Vaccine: See Nurse Assessment - FAMILY HISTORY Family History: reviewed, not pertinent - SOCIAL HISTORY Smoking: denies Substance Use: denies Living Situation: family Physical Exam-General - PHYSICAL EXAM-ADULT Initial Vital Signs Reviewed: Yes - CONSTITUTIONAL General Appearance: alert, no apparent distress - EYES Eyes: PERRL/EOMI - HEAD, EARS, NOSE, MOUTH & THROAT HENMT: normocephalic/atraumatic, moist mucous membranes - NECK Neck: non-tender, full range of motion, supple, normal inspection - RESPIRATORY Respiratory: chest non-tender, lungs clear, normal breath sounds - CARDIOVASCULAR Cardiovascular: normal peripheral pulses, regular rate, rhythm - GASTROINTESTINAL (ABDOMEN) Abdominal Exam: normal bowel sounds, non tender, soft - LYMPHATIC Lymphatic: no adenopathy - MUSCULOSKELETAL Back Exam: normal inspection, no CVA tenderness, no vertebral tenderness Extremity: normal range of motion, non-tender, normal gait, normal capillary refill, pedal edema, other (3+ pitting edema bilateral lower legs) - SKIN Integumentary: normal color, normal turgor, warm/dry - NEUROLOGIC Neurologic: grossly normal - PSYCHIATRIC Psych/Mental Status: normal mood/affect, oriented x 3 Progress - PLAN OF CARE/RESULTS Progress/Plan/Lab Results: Vital Signs - 8 hr 03/25/19 20:01 Temperature 97.9 F Pulse Rate 80 Respiratory Rate 18 Blood Pressure 88/53 O2 Sat by Pulse Oximetry 99 Orders Category Date Time Status EKG [EKG] Stat Ther 03/25/19 20:20 Ordered Patient with EKG showing new onset afib. All other EKGs showing LBBB.Rate has been controlled without medications. Additionally, labs showing LUIS to CKD. It appears her baseline is likely around 1.8 but today she is 2.7. Her BNP is 32. Counseled patient that given these findings she would benefit from inpatient stay. She voiced understanding. Spoke to Dr Crisostomo, patients PCP who accepted patient for admission. Wanted lasix dosed in the ED. Result Diagrams: 03/25/19 21:15 03/25/19 21:15 - EKG 1 Time of EKG reading by physician:: 20:33 EKG Read and Signed by:: Rosa Renae EKG Interpretation (*Must complete 3 of following elements*): Abnormal Rate: 75 Rhythm: Atrial fib QRS: PVC's ST Wave: non-specific ST changes Prior EKG Comparison: changes noted - XRAY 1 XRAY Study: Chest (pulmonary edema) - CONSULTS/PCP/HOSPITALIST Notification #1 *Consult/PCP/Hospitalist*: Kranthi Time Discussed: 23:30 Consult Disposition: Admit Departure - Departure Date of Disposition Decision: 03/25/19 Time of Disposition Decision: 23:28 DIAGNOSIS: CHF (congestive heart failure), New onset a-fib, LUIS (acute kidney injury) Disposition: ADMITTED INPATIENT 09 Certified Medical Emergency: Emergent Condition: Stable - Critical Care Note This patient required my direct & personal management of CC.: No Attestation - Physician/ GARRISON Attestation Patient care was provided by Advanced Practice Provider:: No The physician spent face to face time with patient:: Yes Advanced Practice Provider documentation review:: Supervising physician onsite and consulted in the evaluation and care of this patient. The physician did have a face to face encounter with the patient. This chart was documented by the indicated scribe, (Karlie Pickett, [employer]) and accurately reflects the services I performed and decisions made by me, Rosa Renae MD, as attested by the provider's signature.
[2019-03-25] MEDS ORDERED: LOVENOX 1 MG/KG SUBQ ONE (23:41)
[2019-03-26] MEDS ORDERED: LOVENOX ONE (00:10)
--- NOTE | 2019-03-26 08:09 | Diag Imaging Result Doc PS360 ---
EXAM: CHEST-2 VIEWS - 03/25/2019 HISTORY: new onset afib TECHNIQUE: Chest two views COMPARISON: 11/06/2018 one view chest, 07/29/2018 chest two views FINDINGS: Inspiration is mildly shallow similar to prior. There is stable cardiomegaly. Cardiac pacemaker again seen. There is chronic mild left lower lung subsegmental atelectasis or scarring. Lungs otherwise appear essentially clear. There is no pleural effusion or pneumothorax identified. IMPRESSION: Stable cardiomegaly. Chronic mild left lower lung subsegmental atelectasis or scarring. No acute changes. Electronically signed by Ezequiel Grifftih 03/26/2019 8:07 AM
[2019-03-26] MEDS ORDERED: LASIX PO PRN (13:23)
[2019-03-26] MEDS ORDERED: PHENERGAN PO PRN (13:23)
[2019-03-26] MEDS ORDERED: MAG-OX PO SCH (13:30)
[2019-03-26] MEDS: COREG PO SCH ×2 (14:13→21:47)
[2019-03-26] MEDS ORDERED: G.I. COCKTAIL PO ONE (15:14)
[2019-03-26 20:42] VITALS: BP 113/77
[2019-03-26] MEDS ORDERED: ELIQUIS PO SCH (21:00)
[2019-03-26] MEDS ORDERED: PRAVACHOL PO SCH (21:00)
[2019-03-26] MEDS ORDERED: BETAPACE PO SCH (21:00)
[2019-03-26] MEDS ORDERED: DESYREL PO SCH (21:00)
[2019-03-27] MEDS ORDERED: SYNTHROID PO SCH ×2 (07:00)
[2019-03-27] MEDS ORDERED: COZAAR PO SCH (09:00)
[2019-03-27] MEDS ORDERED: LANOXIN PO SCH (09:00)
[2019-03-27] MEDS ORDERED: FOLIC ACID PO SCH (09:00)
[2019-03-27] MEDS ORDERED: ALDACTONE PO SCH (09:00)
--- NOTE | 2019-05-03 15:11 | HISTORY AND PHYSICAL ---
HISTORY OF PRESENT ILLNESS: She was admitted from the emergency room because of weakness and stated abdominal pain. She has had some swelling in her legs and a burning sensation in her abdomen that leaves her feeling poorly. This is most especially in the lower abdomen. The patient denies fever, chills, nausea, vomiting, diarrhea. Denies chest pain or urinary complaints. She says she is short of breath, and it is worse when she lies flat. She does take Lasix and states she has been taking it for a while. The burning area she is feeling in her abdomen is mostly in her suprapubic area. It has been more active the last 2 days. It is associated with light activity, that is all she actually does. She did not have this pain previously. ALLERGIES: She has an allergy allegedly to Entresto. MEDICATIONS: Magnesium oxide 400 mg daily, pravastatin 40 at bedtime, spironolactone 25 daily, Lasix p.r.n. 20, digoxin 1.25 mcg daily, folic acid 1 mg daily, levothyroxine 100 mcg daily, Eliquis 2.5 b.i.d., Coreg 25 b.i.d., losartan 50 daily, Betapace 80 b.i.d., trazodone 50. REVIEW OF SYSTEMS: She denies any fever or chills, night sweats. Eyes: No change in her visual acuity. No irritation of the eyes. Ears, nose and throat: No pharyngitis, otitis or sinusitis. Cardiovascular: She denies chest pain, palpitations, syncope. She has some edema in her legs that waxes and wanes. Respiratory: Denies cough, shortness of breath or wheeze or phlegm production. Gastrointestinal: She denies nausea, vomiting, diarrhea, constipation, bloody stools, black stools, tarry stools, frequent heartburn. Genitourinary: She denies dysuria, frequency, flank pain. Musculoskeletal: She denies back pain, joint pain, neck pain. Skin: No rashes. Neurological: She denies dizziness, vertigo, headaches, migraines, syncope. Psychiatric: Negative. Endocrine: Negative. Hematologic: No bruising, bleeding or clotting. Allergies: No asthma or hay fever. PAST MEDICAL HISTORY: She has a history of CHF, hypertension, dyslipidemia, sleep apnea, cholelithiasis, GERD, chronic kidney disease, diabetes, thyroid disorder. She has chronic heart failure, systolic heart failure, with EFs in the 20% range. PAST SURGICAL HISTORY: She has had left hip replacement. SOCIAL HISTORY: She is a nonsmoker, nondrinker, lives with her family at the time of admission. PHYSICAL EXAMINATION: VITAL SIGNS: On 03/25/2019, her temperature is 97.9, pulse 80, respirations 18, blood pressure 88/53. Pulse was 65. temp was 99. DIAGNOSTIC DATA: White count was 4760 with a relatively normal differential. Hematocrit was 31.3, platelet count was 105. Differential was normal. Coagulation studies showed PTT was 43.2, INR was 1.84. Sodium was 135, potassium 4.9, chloride 100, CO2 was 22, BUN was 48, creatinine 2.7, estimated GFR was 17, BUN and creatinine ratio 18, glucose 90, calcium 8.5. AST was 70, ALT was 40, alkaline phosphatase 145. BNP was 33,528. Her troponin was 0.031. CK was 93. TSH was 8.91, free T4 was 0.85, lipase was 72. Urine with trace white cells, 10 to 20 per high-power field, greater than 10 epithelial cells. Toxicology showed digoxin 1.8. ASSESSMENT AND PLAN: She was admitted with heart failure, kidney failure, anemia, history of low hematocrits, currently 31.3, and low white count of 44.76 and low platelet count of 105, suggesting a myelodysplasia. MEDICATIONS: Eliquis 2.5 b.i.d. for atrial fibrillation, carvedilol 25 b.i.d. for atrial fibrillation, digoxin 1.25 for atrial fibrillation, Lasix 40 for atrial fibrillation, thyroid hormone replacement,[id number], omeprazole p.r.n., spironolactone 25, Carafate 1 g q.6, trazodone 50 daily. She felt some better the following day after getting some Lasix. cc: Car Crisostomo MD MTDD
--- NOTE | 2019-05-04 14:52 | DISCHARGE SUMMARY ---
ADMISSION DATE: 03/26/2019 DISCHARGE DATE: 03/26/2019 HISTORY OF PRESENT ILLNESS: The patient was admitted from the emergency room and discharged the following day. She presented to the ER with her past history which is hypertensive cardiomyopathy, dyslipidemia, atrial fibrillation, sotalol along with trazodone. She had been feeling some vague abdominal pain in her pelvic and lower abdomen, associated with some weakness and swelling. She has had this vague burning sensation. Denies any fever or chills. No nausea, vomiting, diarrhea, melena or hematochezia. No significant urinary complaints. She has, again, hypertension with chronic ischemic heart disease and nonspecific belly pain. DATABASE: Chest x-ray with stable cardiomegaly, chronic mid lower lung subsegmental atelectasis and scarring. HOSPITAL COURSE: When she got in, her vital signs were fine. She was afebrile. O2 saturations were 96% and 100%. Blood pressures were fine. Pulses were in the 70s. She had a urine culture which was negative. Her laboratory showed digoxin level was 1.8. CBC showed white count was 4760, hematocrit was 31.3, platelet count was 105. PT was 1.84, PTT was 43.2. Chemistries showed chronic elevation of her AST and ALT, minimally elevated alkaline phosphatase of 175, bilirubin was normal. Her BUN was 48, creatinine 2.7, which is a little more concentrated than previously. Her TSH was elevated at 8.91, free T4 was low at 0.85. ProBNP was 33,528. Troponin was 0.031. CK was 93. Not having any chest pain. Her carbon dioxide level was 22. Potassium was 4.9. MEDICATIONS: On admission, we gave her some IV Lasix. Continued her on one shot of Lovenox. Gave her some promethazine. Continued her regular medicines. Elevated her levothyroxine from 100 to 125. Discharged her the following day with chronic CHF, history of hypertension, chronic prerenal azotemia from diuretic therapy, history of atrial fibrillation. If this pain keeps continuing, this discomfort that she describes, we may do a gastroenterological workup. cc: Car Crisostomo MD
== END 2019-03-26 23:10 | disposition home or self-care (01) | DRG 292 ==
LOC: P.ED 19:48 → P.MEDSURG 03-26 00:06
PROVIDERS: ATTEND Internal Medicine

== ENCOUNTER 2019-04-22 18:00 | Observation (INO) ==
[2019-04-22] MEDS ORDERED: NS 1,000 ML IV SCH (18:30)
[2019-04-23] MEDS: COREG PO SCH ×2 (11:24→21:04)
[2019-04-23] MEDS: SYNTHROID PO SCH ×2 (11:25→11:26)
[2019-04-23] MEDS: ALDACTONE PO SCH (11:25)
[2019-04-23] MEDS: LANOXIN PO SCH (11:25)
--- NOTE | 2019-04-24 04:41 | EKG Report ---
Test Performed on : 04/24/2019 04:17:12 AM Test Reason : AFIB Blood Pressure : / mmHG Vent. Rate : 065 BPM Atrial Rate : 065 BPM P-R Int : 182 ms QRS Dur : 126 ms QT Int : 430 ms P-R-T Axes : 055 -27 001 degrees QTc Int : 447 ms Normal sinus rhythm. Nonspecific intraventricular block Possible Anterolateral infarct (cited on or before 25-MAR-2019) Abnormal ECG When compared with ECG of 25-MAR-2019 20:28, (Unconfirmed) Sinus rhythm. has replaced Atrial fibrillation. T wave inversion no longer evident in Lateral leads Unconfirmed Result
[2019-04-24] MEDS ORDERED: TYLENOL PO ONE (05:01)
--- NOTE | 2019-04-24 05:26 | CONSULTATION ---
DATE OF CONSULTATION: 04/23/2019 IMPRESSION: 1. Chronic congestive heart failure. 2. Severe nonischemic cardiomyopathy. 3. Significant mitral regurgitation. 4. Chronic kidney disease stage 4 to stage 5. 5. Type 2 diabetes mellitus. 6. Hypertension, longstanding. 7. Paroxysmal atrial fibrillation. 8. Atrial fibrillation. 9. Hypothyroidism. RECOMMENDATIONS: 1. Repeat echocardiography. 2. Add low-dose hydralazine as tolerated along with low-dose isosorbide. HISTORY: This 68-year-old -Citizen Of [place] female with past history of severe nonischemic cardiomyopathy with left ventricular ejection fraction in the past 20 to 25 percent, significant mitral regurgitation, chronic kidney disease stage 4, hypertension, type 2 diabetes mellitus, atrial fibrillation, and hypothyroidism who was admitted because of progressive weakness. She and her family related that she was hospitalized perhaps a month ago for congestive heart failure. She has recently developed progressive weakness. She tends to sleep sitting in a chair most evenings, and has done so for more or less the past 5 days. She also relates that she prefers to sleep in a chair because she has some difficulty with shortness of breath lying down and insomnia. There has been no chest pain. She has been followed by Dr. Caban of Cardiology, and also by the congestive heart failure clinic in [place]. PAST MEDICAL HISTORY: 1. Severe nonischemic cardiomyopathy. 2. Significant mitral regurgitation. 3. Status post implantable defibrillator. 4. Chronic kidney disease stage 4. 5. Longstanding hypertension. 6. Atrial fibrillation. 7. Type 2 diabetes mellitus. 8. Hypothyroidism. 9. Hyperlipidemia. PAST SURGICAL HISTORY: Also includes left hip repair, open reduction and internal fixation of pelvis fracture, bilateral tubal ligation and laparoscopically cholecystectomy. ALLERGIES: She is allergic or intolerant to sacubitril and valsartan. MEDICATIONS: Prior to admission as listed. SOCIAL HISTORY: She lives with her and remains fairly independent. She does not smoke or use alcohol. FAMILY HISTORY: Negative for premature coronary disease. REVIEW OF SYSTEMS: Pulmonary: Noteworthy for [* shortness of breath lying down. There has been no significant cough. Gastrointestinal: Noteworthy for some nausea and vomiting with her previous hospitalization for congestive heart failure. She has also had some tendency for anorexia. Constitutional: Negative. Remainder of review of systems negative/noncontributory with 14 total systems reviewed. PHYSICAL EXAMINATION: General: This is an elderly female in no distress presently on room air. Vital Signs: Blood pressure 109/72, heart rate 69, and oxygen saturation 100%. HEENT: Noteworthy for mucous membranes are moist. Neck: Supple. There is no significant jugular venous distention appreciated. Chest: Clear to auscultation bilaterally. Cardiovascular: Exam reveals an irregular rate and rhythm. There is a grade 2 systolic murmur at left ventricular apex. Gallop could not be appreciated. Abdomen: Soft. Bowel sounds are audible. Extremities: Demonstrate 3+ pitting edema. Neurologic: Reveals her to be alert and fully oriented. Speech is fluent. Moves all 4 extremities equally well. Skin: Warm and dry. Psychiatric: Reveals mood to be appropriate. LABORATORY DATA: Pending. cc: MD Car Sunshine MD MTDD
[2019-04-24] MEDS: SYNTHROID PO SCH ×4 (05:41→06:21)
[2019-04-24] MEDS: COREG PO SCH ×2 (10:36→10:37)
[2019-04-24] MEDS: LANOXIN PO SCH (10:38)
[2019-04-24] MEDS: ALDACTONE PO SCH (10:39)
[2019-04-24] MEDS: ISORDIL PO SCH ×2 (10:40→14:53)
[2019-04-24] MEDS: APRESOLINE PO SCH ×2 (10:40→14:41)
[2019-04-24 14:40] VITALS: BP 113/66
--- NOTE | 2019-04-25 00:42 | ECHO REPORT ---
ORDER DATE: 04/23/2019 MEASUREMENTS: Left ventricular internal diameter in diastole 6.5. Left ventricular internal diameter in systole. Aortic root 3.2. Left atrium 5. SUMMARY: 1. Fair quality study. 2. Aortic valve is trileaflet and opens normally on 2-dimensional images. Peak gradient across the aortic valve is less than 5 mmHg. There is trace aortic regurgitation. Mitral, tricuspid, and pulmonic valves are without evidence of structural abnormality with moderate to severe mitral regurgitation, moderate tricuspid regurgitation, and [id number] pulmonic insufficiency. The estimated systolic PA pressure by Doppler is 55 to 60 mmHg suggesting moderate pulmonary hypertension. The aortic root is normal in size. 3. Moderate left ventricular enlargement with mild concentric left hypertrophy is demonstrated. Estimated left ejection fraction approximately 10% to 15% in the setting of very severe global hypokinesis. The left atrium is moderate to severely enlarged. The right atrium is moderate to severely enlarged. The right ventricle is mildly enlarged with mildly reduced right ventricular systolic function. 4. No pericardial effusion. 5. Appearance of inferior vena cava suggests elevated central venous pressure. cc: MD Car Sunshine MD
--- NOTE | 2019-06-09 18:27 | HISTORY AND PHYSICAL ---
HISTORY OF PRESENT ILLNESS: This patient is a followup patient of [facility]. I see her in the office regularly. She is followed up from a hospital stay approximately a month ago where she presented as usual with edema, pulmonary edema, peripheral edema, poor cardiac output, general malaise, and abdominal pressure. Today, she is particularly feeling weak. She is still having trouble with a burning sensation in her abdomen. She is not sleeping well. Daughter wants to increase her trazodone. The patient arrived in a wheelchair. She has been weak with swollen lower legs, not short of breath. She has not had furosemide in two days. She took carvedilol 25 b.i.d. and digoxin 125, Aldactone but just weak. Stomach burning and following strict low sodium diet. She has a significant heart disease because of mitral valve problems. She is not ready for a mitral valve replacement and therefore is in steady CHF with malaise. She has no chest pain. She has no coronary artery disease. No chills. No fever. No nausea. No vomiting. CURRENT MEDICATIONS: 1. Eliquis 5 one half daily. 2. Lasix 40 p.r.n. 3. Carvedilol 20 b.i.d. 4. Digoxin 125 mcg daily. 5. Folic acid 1 mg daily. 6. Levothyroxine 125 mcg daily. 7. Omeprazole 40 mg daily. 8. Pravastatin 40 mg at bedtime. 9. Spironolactone 25. 10.Carafate 1 gram p.r.n. 11.Trazodone 50. ALLERGIES: Include, Entresto and valsartan. PAST MEDICAL HISTORY: Nephrotic syndrome, degenerative disease in her knee, hypertension, diabetes type 2, thyroid disorder with thyroid replacement therapy, fatty liver, reflux esophagitis, CHF with severe mitral regurgitation, hip replacement, history of pulmonary edema. She has had a tubal ligation, cystoscopy, left hip replacement, gallbladder surgery in 2019. She had a previous colonoscopy in 2001 and mammogram in 2016. She had a pap smear in [address] Barrios. She refuses flu vaccine. SOCIAL HISTORY: She is with children. She has never smoked. 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 Does not use alcohol. She drinks one cup of caffeinated drink daily. She does not use recreational drugs. She does not have an advanced directive. Her daughter presented with her. FAMILY HISTORY: Two aunts and mother with history of diabetes. Family history of breast cancer. REVIEW OF SYSTEMS: CONSTITUTIONAL: She is weak. No fever, chills, or night sweats. EYES: Denies any double vision, tunnel changes or changes in visual acuity. EARS, NOSE AND THROAT: Denies any congestion, nasal congestion, rhinorrhea, or changes in hearing. CARDIOVASCULAR: Denies chest pain, palpitations, peripheral edema, orthopnea, PND, or claudication. RESPIRATORY: She denies shortness of breath, dyspnea, exertional cough, phlegm, or wheezing. GASTROINTESTINAL: No nausea, vomiting, diarrhea, constipation, belly pain, belly bloating, melena, hematochezia, GERD, or dysphagia. GENITOURINARY: No dysuria, hematuria, polyuria, or nocturia. MUSCULOSKELETAL: Legs ache with edema. SKIN: Clear. NEUROLOGICAL: Symmetric. No pathological findings. ENDOCRINE: No polyuria, polydipsia, or polyphagia. Issues with stamina. HEMATOLOGICAL: No bleeding or bruising. ALLERGIES: Negative. PHYSICAL EXAMINATION: GENERAL: She is a pleasant, polite lady. She wears glasses. She is in a wheelchair now for mobility and shortness of breath. She is well groomed. VITAL SIGNS: In the office, blood pressure quite low at 74/58, pulse 68, respiratory rate 16. HEENT: Head was normocephalic. Eyes: PERRL. EOMs intact. Sclerae clear. Nares patent. Oropharynx negative. NECK: Supple. Bounding carotids without thyromegaly. CHEST: Bilateral breath sounds, diminished in the bases. CARDIOVASCULAR: Regular rate and rhythm with a murmur. ABDOMEN: Obese. Soft. No hepatosplenomegaly. EXTREMITIES: She had pitting edema to her knees, 2+ to 3+. ADMITTING DIAGNOSES: 1. Chronic congestive heart failure. 2. History of congestive heart failure with mitral regurgitation. 3. Diuretic therapy. 4. Generalized weakness. PLAN: She was admitted for evaluation. cc: Car Crissotomo MD
--- NOTE | 2019-06-10 10:58 | DISCHARGE SUMMARY ---
ADMISSION DATE: 04/22/2019 DISCHARGE DATE: 04/24/2019 HISTORY OF PRESENT ILLNESS: Ms. Arias is a patient of mine who has chronic congestive heart failure with a nonischemic cardiomyopathy and mitral valve regurgitation, chronic kidney disease stage 4 to 5, type 2 diabetes, longstanding hypertension, paroxysmal atrial fibrillation, and hypotension. She was admitted because she presented to the office with a 74/58 blood pressure, feeling weak. So we admitted her upstairs to the floor to address her numbers. She saw Dr. Phillips in consult, and she was hospitalized for a couple of days, complaining primarily of lower abdominal pain and discomfort. We gave her a little bit of fluid, as we were more in distress than she was with her rate, but her blood pressure subsequently improved to 109/72, heart rate 69, O2 saturation was 100%. She had 3+ pitting edema the whole stay. She is apparently over diuresed. She is basically confined to a chair. She sits, sleeps and stays in her chair and has been doing that here lately. She is also seen by Dr. Caban and the [facility] in [place]. After those initial lower pressures, her pressure got up into the low 100s. Pulses stayed in the 70 range. O2 saturations were fine. Her chest x-ray read by Dr. Harding showed stable pacemaker, stable cardiomegaly, pulmonary vasculature is grossly normal, stable linear atelectasis in the right lingula, no new infiltrates, no pneumothorax, no pleural effusions. Her echocardiogram done by Dr. Phillips on 04/23/2019 showed no pericardial effusions, inferior vena cava suggests elevated central venous pressures. She had moderate left ventricular enlargement with mild concentric left hypertrophy. Her ejection fraction is approximately 10% to 15% in the setting of a very severe global hypokinesis. Left atrium is moderately to severely enlarged. The right atrium is moderately to severely enlarged. The right ventricle is mildly enlarged with mildly reduced right ventricular systolic pressures. Her aortic valve was trileaflet. The peak gradient across the aortic valve was less than 5 mm. There is trace AR. Mitral, tricuspid and pulmonary valves are without evidence of structural abnormalities, with moderate to severe mitral regurgitation, moderate tricuspid regurgitation. Mild to moderate pulmonary insufficiency. Estimated systolic PA pressure in the lung is 55 to 60, suggesting moderately severe pulmonary hypertension. The aortic root is normal size. She improved, and she still is going to be seen in the [facility] Failure [facility]. We are simply just going to have to keep her in a delicate balance of heart failure versus dehydration. There is no real answer right now other than just maintenance therapy. cc: Car Crisostomo MD
== END 2019-04-24 17:23 | disposition home or self-care (01) ==
LOC: P.DIRADM → P.MEDSURG
PROVIDERS: ADMIT Internal Medicine; ATTEND Internal Medicine

== ENCOUNTER 2019-05-27 00:34 | Inpatient (IN) ==
[2019-05-27 02:13] LABS: ALBUMIN 4.2 g/dL (3.5-5.0); CALCIUM 9.5 mg/dL (8.8-10.2); DIGOXIN 0.9 ng/mL (0.9-2.0); POTASSIUM 4.4 mmol/L (3.5-5.1); TOTAL BILIRUBIN 1.2 mg/dL (0.20-1.00); TOTAL PROTEIN 7.4 g/dL (6.3-8.3)
[2019-05-27 02:27] LABS: BASO# 0.02 X1000 (0.0-0.2); BASO% 0.4 % (0.0-0.8); EOS# 0.05 X1000 (0.0-0.7); HEMATOCRIT 37.4 % (37.0-47.0); HEMOGLOBIN 12.6 g/dL (12.0-16.0); IMM GRAN# 0.01 X1000 (0.0-0.04); IMM GRAN% 0.2 % (0.0-0.5); LYMPH# 2.74 X1000 (1.2-3.4); LYMPH% 53.7 % (20.5-51.1); MCH 29.6 PG (27-31); MCHC 33.7 g/dL (33-37); MCV 87.8 FL (81-99); MONO% 9.8 % (1.7-9.3); MPV 10.7 FL (7.4-10.4); NEUT# 1.78 X1000 (1.4-6.5); NEUT% 34.9 % (42.2-75.2); PLT 102 X1000 (130-400); RBC 4.26 XMIL (4.2-5.4); RDW 15.9 % (11.5-14.5)
[2019-05-27 04:03] LABS: BILIRUBIN URINE NEGATIVE (NEGATIVE); BLOOD URINE NEGATIVE (NEGATIVE); CLARITY CLEAR (CLEAR); COLOR YELLOW; GLUCOSE URINE NEGATIVE (NEGATIVE); KETONE URINE NEGATIVE (NEGATIVE); LEUKOCYTES URINE NEGATIVE (NEGATIVE); NITRITE URINE NEGATIVE (NEGATIVE); PROTEIN URINE 2+(100 mg/dL) mg/dL (NEGATIVE); SP GRAVITY URINE 1.015; UROBILINOGEN URINE NORMAL
[2019-05-27 04:05] LABS: URINE BACTERIA 3+ /HFP; URINE EPITHELIAL CELLS <10 /HPF (<10); URINE YEAST NONE SEEN /HPF
[2019-05-27] MEDS ORDERED: LASIX IV ONE (04:05)
[2019-05-27 04:06] LABS: URINE RBC <10 /HPF (<10); URINE SOURCE CATH; URINE WBC <10 /HPF (<10)
--- NOTE | 2019-05-27 04:06 | PROVIDER DOCUMENTATION ---
This chart was entered by Mack Hansen Scribe, acting as scribe for Luis Vincent MD. HPI-Respiratory General - General Chief Complaint: Abdominal Pain Stated Complaint: SOB Time Seen by Provider: 05/27/19 00:41 Source: patient, family Allergies/Adverse Reactions: Patient Allergies Allergy/AdvReac Type Severity Reaction Status Date / Time sacubitril [From Entresto] Allergy hallucinati Verified 05/27/19 01:51 ons valsartan [From Entresto] Allergy hallucinati Verified 05/27/19 01:51 ons Home Medications: Home Medication List Medication Instructions Recorded Confirmed Last Taken Type PRAVAstatin [Pravachol] 40 mg PO HS 08/07/16 05/27/19 05/26/19 History Furosemide [Lasix] 40 mg PO DAILY PRN 08/11/17 05/27/19 05/26/19 History Digoxin [Lanoxin] 125 microgm PO DAILY tablet 07/23/18 05/27/19 05/26/19 Rx Folic Acid 1 mg PO DAILY tablet 07/23/18 05/27/19 05/26/19 Rx Carvedilol [Coreg] 25 mg PO BID 12/03/18 05/27/19 05/26/19 History Trazodone [Desyrel] 50 mg PO QHS 12/03/18 05/27/19 03/24/19 21:00 History Levothyroxine [Synthroid] 125 microgm PO DAILY@0700 03/26/19 05/27/19 05/26/19 History Sucralfate [Carafate] 1 gm PO Q6H PRN 04/22/19 05/27/19 Unknown History Apixaban [Eliquis] 1 tab PO BID 05/27/19 05/27/19 05/26/19 History Losartan Potassium [Cozaar] 1 tab PO DAILY 05/27/19 05/27/19 05/26/19 History Magnesium Oxide [Magox 400] 1 tab PO DAILY 05/27/19 05/27/19 05/26/19 History Omeprazole 1 cap PO DAILY 05/27/19 05/27/19 05/26/19 History Spironolactone 1 tab PO DAILY 05/27/19 05/27/19 05/26/19 History - History of Present Illness-Resp Nature of Presenting Problem: Pt is a 69 yof who presents to the ED with a CC of shortness of breath. Pt reports she has been short of breath for two days. Pt also complains of a discomfort in her abdomen, nausea, and edema to her lower extremities bilaterally. Pt denies any vomiting, fever, chest pain, or a cough. Pt's daughter states the pt was seen at the heart clinic three weeks ago for her olivia ma and states she was given Lasix IV and given a prescription for Lasix. Pt's daughter reports the pt was seen again at the heart clinic last week and was told to limit her Lasix use because it was affecting her kidneys too much. Quality of Pain: reports: dull Severity in ED: reports: mild Onset/Duration: reports: 2 days ago Timing: reports: still present Cough Quality/Degree: reports: no cough Current Respiratory Medication Therapy: Initiated see nurses note Associated Symptoms: reports: shortness of breath Similar Symptoms Previously?: Yes Recently seen or treated by another doctor?: Yes Review of Systems - Adult - REVIEW OF SYSTEMS - ADULT Constitutional: reports: see HPI Eyes: reports: no symptoms reported Ears, Nose, Mouth & Throat: reports: no symptoms reported Cardiovascular: reports: see HPI, edema Respiratory: reports: see HPI, shortness of breath Gastrointestinal: reports: see HPI, abdominal pain, nausea Genitourinary: reports: no symptoms reported Musculoskeletal: reports: no symptoms reported Integumentary: reports: no symptoms reported Neurological: reports: no symptoms reported Psychiatric: reports: no symptoms reported Endocrine: reports: no symptoms reported Hematologic/Lymphatic: reports: no symptoms reported Allergic/Immunologic: reports: no symptoms reported All Other Systems: Reviewed and Negative Past History - Adult - PAST MEDICAL HISTORY-ADULT Review of Records: reports: Old Records Reviewed, Nursing Assessment Review, Medications Reviewed, Social history reviewed & non-contributory. Major Childhood Illnesses: reports: denies history Cardiovascular: reports: CHF, HTN, hyperlipidemia, other (mds) Respiratory: reports: sleep apnea Gastrointestinal: reports: cholelithiasis, GERD Obstetrical/Gynecological: reports: denies history Genitourinary: reports: kidney disease Musculoskeletal: reports: other (MDS) Neurological: reports: denies history Psychiatric: reports: denies history Endocrine/Immune: reports: Diabetes, thyroid disorder Other Conditions: reports: denies history - PRIOR SURGERIES/PROCEDURES Surgical/Procedure History: reports: joint replacement (L hip/pelvis) - IMMUNIZATION STATUS Childhood Immunizations: See Nurse Assessment Flu Vaccine: See Nurse Assessment - FAMILY HISTORY Family History: reviewed, not pertinent - SOCIAL HISTORY Smoking: denies, non-smoker Substance Use: none/never, denies Alcohol Use Frequency: never Physical Exam-General - PHYSICAL EXAM-ADULT Initial Vital Signs Reviewed: Yes - CONSTITUTIONAL General Appearance: alert, mild distress - EYES Eyes: PERRL/EOMI - HEAD, EARS, NOSE, MOUTH & THROAT HENMT: moist mucous membranes - NECK Neck: non-tender, full range of motion - RESPIRATORY Respiratory: chest non-tender, lungs clear, normal breath sounds, no pleuratic chest pain, no respiratory distress, no accessory muscle use - CARDIOVASCULAR Cardiovascular: normal peripheral pulses, regular rate, rhythm, no gallop, no JVD, no murmur - GASTROINTESTINAL (ABDOMEN) Abdominal Exam: soft - MUSCULOSKELETAL Extremity: swelling - SKIN Integumentary: normal color, warm/dry, swelling - NEUROLOGIC Neurologic: grossly normal - PSYCHIATRIC Psych/Mental Status: normal mood/affect, normal thought content, normal thought process, oriented x 3 - HEART Score HEART Score: History: Moderately Suspicious HEART Score: ECG: Normal HEART Score: Age: > or = 65 Years HEART Score: Risk Factors for Atherosclerotic Disease: > or = 3 Risk Factors or History of Atherosclerotic Disease Progress - PLAN OF CARE/RESULTS Progress/Plan/Lab Results: Vital Signs - 8 hr 05/27/19 00:40 Pulse Rate 78 Respiratory Rate 20 Blood Pressure 118/92 O2 Sat by Pulse Oximetry 96 Laboratory Results - last 24 hr 05/27/19 05/27/19 05/27/19 01:27 01:27 01:27 WBC 5.10 RBC 4.26 Hgb 12.6 Hct 37.4 MCV 87.8 MCH 29.6 MCHC 33.7 RDW Std Deviation 15.9 H Plt Count 102 L MPV 10.7 H Immature Gran % (Auto) 0.2 Neut % (Auto) 34.9 L Lymph % (Auto) 53.7 H [place] % (Auto) 9.8 H Eos % (Auto) 1.0 Baso % (Auto) 0.4 Immature Gran # (Auto) 0.01 Neut # (Auto) 1.78 Lymph # (Auto) 2.74 [place] # (Auto) 0.50 Eos # (Auto) 0.05 Baso # (Auto) 0.02 Sodium 141 Potassium 4.4 Chloride 103 Carbon Dioxide 24 L Anion Gap 14 BUN 41 H Creatinine 2.0 H Estimated GFR/1.73 m2 25 BUN/Creatinine Ratio 21 Glucose 102 Calculated Osmolality 292 Calcium 9.5 Total Bilirubin 1.20 H AST 78 H ALT 27 Alkaline Phosphatase 113 H Troponin T [id number] Pe[place] 53810 H Total Protein 7.4 Albumin 4.2 Globulin 3.0 Albumin/Globulin Ratio 1.0 Urine Color Urine Clarity Urine pH Ur Specific [place] Urine Protein Urine Ketones Urine Blood Urine Nitrite Urine Bilirubin Urine Urobilinogen Urine WBC Urine Glucose Digoxin 0.9 05/27/19 05/27/19 01:27 03:04 WBC RBC Hgb Hct MCV MCH MCHC RDW Std Deviation Plt Count MPV Immature Gran % (Auto) Neut % (Auto) Lymph % (Auto) [place] % (Auto) Eos % (Auto) Baso % (Auto) Immature Gran # (Auto) Neut # (Auto) Lymph # (Auto) [place] # (Auto) Eos # (Auto) Baso # (Auto) Sodium Potassium Chloride Carbon Dioxide Anion Gap BUN Creatinine Estimated GFR/1.73 m2 BUN/Creatinine Ratio Glucose Calculated Osmolality Calcium Total Bilirubin AST ALT Alkaline Phosphatase Troponin T 0.032 Tjd-Y-Xyqbwfperxd Pept Total Protein Albumin Globulin Albumin/Globulin Ratio Urine Color YELLOW Urine Clarity CLEAR Urine pH 5.0 Ur Specific [place] 1.015 Urine Protein 2+(100 mg/dL) A Urine Ketones NEGATIVE Urine Blood NEGATIVE Urine Nitrite NEGATIVE Urine Bilirubin NEGATIVE Urine Urobilinogen NORMAL Urine WBC NEGATIVE Urine Glucose NEGATIVE Digoxin Orders Category Date Time Status Nursing- Obtain EKG ONCE Care 05/27/19 00:52 Active CHEST-1 VIEW [RAD] Stat Exams 05/27/19 00:[address] ABDOMEN/PELVIS W/O CONTRAST [CT] Stat Exams 05/27/19 03:17 Ordered BNP [PRO B-NATRIURETIC PEPTIDE] Stat Lab 05/27/19 01:27 Completed CBC WITH DIFF [HEME] Stat Lab 05/27/19 01:27 Completed COMPREHENSIVE METABOLIC PANEL [CHEM] Stat Lab 05/27/19 01:27 Completed DIGOXIN [TDM] Stat Lab 05/27/19 01:27 Completed TROPONIN T Stat Lab 05/27/19 01:[address] W/POSS RFLX CULT [URINALYSIS] Stat Lab 05/27/19 03:04 Results EKG [EKG] Stat Ther 05/27/19 00:52 Ordered Result Diagrams: 05/27/19 01:27 05/27/19 01:27 - EKG 1 Time of EKG reading by physician:: 01:36 EKG Read and Signed by:: Luis Vincent EKG Interpretation (*Must complete 3 of following elements*): Abnormal (Left axis deviation; Nonspecific intraventricular block; Possible anterolateral infarct, age undetermined) Rate: 74 Rhythm: NSR Traer: left QRS: normal FL Interval: normal ST Wave: normal - XRAY 1 XRAY Study: Chest Impression: Abnormal (cardiomegaly with PVC) - CONSULTS/PCP/HOSPITALIST Notification #1 *Consult/PCP/Hospitalist*: Kranthi Time Discussed: 03:55 Consult Disposition: Admit Departure - Departure Date of Disposition Decision: 05/27/19 Time of Disposition Decision: 03:55 DIAGNOSIS: CHF (congestive heart failure) Qualifiers: Heart failure type: unspecified Heart failure chronicity: acute on chronic Qualified Code(s): I50.9 - Heart failure, unspecified Disposition: ADMITTED INPATIENT 09 Certified Medical Emergency: Emergent Condition: Good Additional Freetext Instructions: ED Follow Up Instructions: You have been treated by a care provider in the Emergency Department. These instructions are being provided to you so you can have an understanding of how to care for yourself upon discharge. Upon discharge from the Emergency Department, you are responsible for making arrangements for follow-up care by a physician of your choice. Take all prescribed medications as directed. Return to the Emergency Department immediately for any new or worsening symptoms. You may call the Physician Referral phone number at [phone] to obtain a list of Physicians who are taking new patients. Referrals and Follow-Ups: Car Crisostomo MD [Primary Care Provider] - - Critical Care Note This patient required my direct & personal management of CC.: No Attestation - Physician/ GARRISON Attestation Patient care was provided by Advanced Practice Provider:: No The physician spent face to face time with patient:: Yes Advanced Practice Provider documentation review:: Supervising physician onsite and consulted in the evaluation and care of this patient. The physician did have a face to face encounter with the patient. This chart was documented by the indicated scribe, (Mack Hansen, Scribe) and accurately reflects the services I performed and decisions made by me, Luis Vincent MD, as attested by the provider's signature.
--- NOTE | 2019-05-27 04:59 | Diag Imaging Result Doc PS360 ---
EXAM: CHEST-1 VIEW HISTORY: SOB TECHNIQUE: Chest single view COMPARISON: 04/22/2019 FINDINGS: Poor inspiratory effort. The heart is enlarged. Mild pulmonary edema. No consolidation. No pleural effusions. IMPRESSION: Cardiomegaly with mild pulmonary edema Electronically signed by Shan Landon 05/27/2019 4:56 AM
--- NOTE | 2019-05-27 05:05 | EKG Report ---
Test Performed on : 05/27/2019 01:04:09 AM Test Reason : SOB Blood Pressure : / mmHG Vent. Rate : 074 BPM Atrial Rate : 074 BPM P-R Int : 190 ms QRS Dur : 126 ms QT Int : 400 ms P-R-T Axes : 049 -39 085 degrees QTc Int : 444 ms Normal sinus rhythm. Left axis deviation Nonspecific intraventricular block Possible Anterolateral infarct (cited on or before 25-MAR-2019) Abnormal ECG When compared with ECG of 24-APR-2019 04:17, (Unconfirmed) No significant change was found Unconfirmed Result
--- NOTE | 2019-05-27 08:46 | EKG Report ---
Test Performed on : 05/27/2019 08:13:23 AM Test Reason : serials, CHF Blood Pressure : / mmHG Vent. Rate : 079 BPM Atrial Rate : 079 BPM P-R Int : 192 ms QRS Dur : 132 ms QT Int : 414 ms P-R-T Axes : 060 -28 086 degrees QTc Int : 474 ms Sinus rhythm. with frequent premature ventricular complexes. Nonspecific intraventricular block Cannot rule out Anterior infarct (cited on or before 25-MAR-2019) Abnormal ECG When compared with ECG of 27-MAY-2019 08:12, (Unconfirmed) Previous ECG has undetermined rhythm, needs review Confirmed by Car Crisostomo MD ([id number]) on 05/28/2019 9:09:47 PM
--- NOTE | 2019-05-27 16:50 | HISTORY AND PHYSICAL ---
She is a patient of the clinic. She is followed here for a combination of problems, heart failure, chronic kidney disease. She presented to the emergency room the day of admission yesterday and got admitted in the were hours of the morning. Her primary complaint was shortness of breath. She is a 69-year-old female. She has been short of breath for a couple of days. She had recently been hospitalized for approximately a week at [facility] for the same complaint of this chronic congestive heart failure and mitral regurgitation with a very low EF. The patient complains of a fullness in her abdomen with some nausea and 3-4+ edema of her lower extremities which has gotten worse lately. She denied any vomiting, fever, chest pain or cough. Her daughter said that she had been in the heart clinic 3 weeks ago for her edema and states she was given Lasix and was prescribed Lasix 40 mg a couple of times a day. Then, she was seen again in the heart clinic last week and was told to limit her Lasix use because it was affecting her kidneys too much. She describes a dull mild aching pain which we think is just hepatic congestion, and the pain has been there more or less for the past couple of months. It is a little worse now and shortness of breath a little worse. She has to sit up, cannot sleep laying down. So, she was admitted for an exacerbation of her chronic congestive heart failure. ALLERGIES: She is allergic to Entresto. MEDICATIONS: 1. Pravastatin 40. 2. Lasix 40 daily p.r.n. 3. Dig 0.125 therapeutic level. 4. Folic acid 1 mg p.o. daily. 5. Coreg 25 b.i.d. 6. Trazodone 50. 7. Levothyroxine 125 daily. 8. Carafate 1 grams q 6. 9. Eliquis 1 tablet p.o. b.i.d. 10.Cozaar 1 tablet a day. 11.Mag-Ox 1 tablet a day. 12.Omeprazole 1 tablet a day. 13.Spironolactone 25 mg 1 tablet daily. The patient is pretty much confined to the chair and the bed because of her symptoms. REVIEW OF SYSTEMS: HEAD: No dizziness, headache, seizure. EYES: No change in acuity, irritation of her eyes or visual changes. EARS, NOSE AND THROAT: No pharyngitis, otitis or sinusitis. CARDIOVASCULAR: She has chronic edema and chronic shortness of breath. RESPIRATORY: Shortness of breath. No particular cough. Breathing is very limited. When she lays down, she has to sit up almost immediately. GASTROINTESTINAL: She has some vague abdominal pain. No rebound, some nausea, no vomiting. We feel like it is chronically there. This is congestion probably from her liver and edema. GENITOURINARY: No dysuria, hematuria, polyuria or pyuria. MUSCULOSKELETAL: No symptoms of arthralgia, arthritis or muscle aches. SKIN: No lesions or rashes. NEUROLOGICAL: No focal neurological deficits. PSYCHIATRY: No problems other than some depression. ENDOCRINE: No polyuria, polydipsia, hypoglycemia, hyperglycemia, HEMATOLOGICAL: No bleeding from her anticoagulant therapy. No clotting. ALLERGIC: No asthma. No hayfever. SOCIAL HISTORY: She denies smoking. Never drank alcohol. PAST MEDICAL/SURGICAL HISTORY: She is status post left hip/pelvis joint replacement. She has chronic CHF, hypertension, dyslipidemia. Respiratory: She has a history of sleep apnea. Gastrointestinal: She has had cholelithiasis and GERD. : She has had chronic kidney disease. She also has myelodysplasia syndrome. Neurological: No focal neurological deficits. Psychiatric: Depression. Endocrine/Immune: She is taking thyroid and diabetes medication at time of admission. PHYSICAL EXAMINATION: GENERAL: She is not in any significant distress, sitting up in bed as she usually is, breathing a little faster than usual. HEENT: Eyes PERRL. EOMs intact. SC clear. Head normocephalic. Mucous membranes are moist. Nares patent. NECK: Supple. No obvious JVD. No thyromegaly. Midline trachea. CHEST: She has diminished breath sounds. She is tachypneic. CARDIOVASCULAR: Regular rhythm and rate. She has a murmur. ABDOMEN: Obese, no hepatosplenomegaly. EXTREMITIES: 3-4+ edema. NEUROLOGICAL: Normal and symmetric. SKIN: Clear. ADMITTING DIAGNOSES: 1. Chronic congestive heart failure. 2. Diabetes. 3. Thyroid disease. 4. History of hypertension. She is going to be transferred to [facility] under the care of Dr. Phillips who is going to give her some infusions to try to mitigate her heart failure. cc: Car Crisostomo MD
--- NOTE | 2019-05-27 16:58 | EKG Report ---
Test Performed on : 05/27/2019 2:45:20 PM Test Reason : serials, CHF Blood Pressure : / mmHG Vent. Rate : 081 BPM Atrial Rate : 081 BPM P-R Int : 194 ms QRS Dur : 136 ms QT Int : 406 ms P-R-T Axes : 057 -29 093 degrees QTc Int : 471 ms Normal sinus rhythm. Nonspecific intraventricular block Possible Anterolateral infarct (cited on or before 25-MAR-2019) Abnormal ECG When compared with ECG of 27-MAY-2019 08:13, (Unconfirmed) premature ventricular complexes. are no longer present Confirmed by Car Crisostomo MD ([id number]) on 05/28/2019 9:09:24 PM
[2019-05-27] MEDS ORDERED: MILRINONE IV ONE (20:14)
--- NOTE | 2019-05-27 21:30 | CONSULTATION ---
DATE OF CONSULTATION: 05/27/2019 IMPRESSION: 1. Acute on chronic congestive heart failure, predominantly right-sided, with likely some degree of hepatic congestion. 2. Severe cardiomyopathy with left ventricular ejection fraction approximately 15%. 3. Severe mitral regurgitation. 4. Chronic kidney disease. 5. Type 2 diabetes mellitus. 6. Longstanding hypertension. 7. Paroxysmal atrial fibrillation. 8. Hypothyroidism. RECOMMENDATIONS: 1. Transferred to step-down unit (PVC unit) at [facility], and initiate intravenous milrinone as an inotrope. 2. Diurese with IV Lasix with close supervision of volume status. 3. Continue low-dose sotalol for suppression of atrial fibrillation. 4. Suspect possible component of cardiorenal syndrome. The renal function improves, may consider addition of angiotensin receptor blocking agent. 5. Continue hydralazine/isosorbide. 6. Further recommendations depending on patient's clinical course. HISTORY: This 69-year-old -[place] female with past history of severe nonischemic cardiomyopathy, severe mitral regurgitation, chronic kidney disease stage 4, hypertension, type 2 diabetes mellitus, paroxysmal atrial fibrillation, and hypothyroidism was admitted because of upper abdominal discomfort and swelling. She was hospitalized about a month ago for congestive heart failure and approximately 1 month prior to that also for congestive heart failure. She has had chronic tendency for orthopnea. She tends to sleep more or less upright most the time. She has had chronic lower extremity swelling. She has had recent problems with vague upper abdominal discomfort and nausea which is aggravated by eating. There has been no chest pain. She has severe cardiomyopathy with echocardiography. Last hospitalization demonstrating left ejection fraction of 15%, severe mitral regurgitation, biatrial enlargement, and mild right-sided enlargement. She manifest moderate to severe pulmonary hypertension by Doppler as well. She has been followed by Dr. Caban of Cardiology here in [place] and also by the CHF clinic in [place]. She is status post previous implantable defibrillator. PAST MEDICAL HISTORY: 1. Severe nonischemic cardiomyopathy. 2. Severe mitral regurgitation. 3. Status post implantable defibrillator. 4. Chronic kidney disease stage 4. 5. Longstanding hypertension. 6. Paroxysmal atrial fibrillation. 7. Type 2 diabetes mellitus. 8. Hypothyroidism. 9. Hyperlipidemia. PAST SURGICAL HISTORY: 1. Includes previous left hip fracture repair with open reduction and internal fixation of pelvis fracture. 2. She is also status post bilateral tubal ligation and laparoscopic cholecystectomy. ALLERGIES: She is allergic or intolerant to sacubitril and valsartan. MEDICATIONS PRIOR TO ADMISSION: As listed. SOCIAL HISTORY: She lives with her and remains fairly independent despite her heart problem. She does not smoke or use alcohol. FAMILY HISTORY: Negative for premature coronary disease. REVIEW OF SYSTEMS: Pulmonary: Noteworthy for chronic orthopnea as well as significant exertion shortness of breath with short distances. Gastrointestinal: Noteworthy for some tendency for nausea and vague upper abdominal discomfort. Constitutional: Negative. Remainder of review of systems negative/noncontributory with 14 total systems reviewed. PHYSICAL EXAMINATION: General: This is a older -Togol[place] female in no distress, leaning forward over bedside table. Vital signs: Blood pressure 129/82, heart rate 82, oxygen saturation 100%. HEENT: Extraocular movements intact. Mucous membranes moist. Neck: Supple. Jugular distention is evident consistent with elevated central venous pressure. Chest: Clear to auscultation bilaterally with some diminished breath sounds at bases bilaterally. Cardiac Exam: Reveals a regular rate and rhythm with a grade 2 systolic murmur at the left ventricular apex. Gallop could not be appreciated. Abdomen: Soft. Bowel sounds audible. Extremities: Demonstrate 3+ pitting edema. Neurologic: Reveals her to be alert and fully oriented. Speech is fluent. She moves all 4 extremities equally well. Skin: Warm and dry. Psychiatric: Reveals mood to be appropriate. PERTINENT DATA: Twelve lead EKG demonstrates normal sinus rhythm, nonspecific interventricular conduction block and poor precordial R-wave progression. LABORATORY DATA: Includes white blood cell count of 5.1, hematocrit 37.4, hemoglobin 12.6, platelet count 102,000. Sodium 141, potassium 4.4, chloride 103, carbon dioxide 24, BUN 41, creatinine 2.0, estimated GFR 25. Glucose 102. Total bilirubin 1.2, AST 78, ALT 27. Alkaline phosphatase 113. Albumin 4.2. Pro B-natriuretic peptide level greater than 35,000. Troponin T 0.032. Digoxin level 0.9. Chest x-ray was reviewed and demonstrates severe cardiomyopathy, severe cardiomegaly. Mild pulmonary edema is suggested. cc: Bear Phillips MD
[2019-05-27] MEDS: LASIX IV SCH (21:42)
[2019-05-27] MEDS: COREG PO SCH (21:44)
[2019-05-27] MEDS: ELIQUIS PO SCH (21:44)
[2019-05-27] MEDS: PRIMACOR 20 MG/D5W 100 ML 20 MG/100 ML IVPB IV SCH (21:45)
--- NOTE | 2019-05-27 22:35 | EKG Report ---
Test Performed on : 05/27/2019 10:20:25 PM Test Reason : serials, CHF Blood Pressure : / mmHG Vent. Rate : 092 BPM Atrial Rate : 092 BPM P-R Int : 194 ms QRS Dur : 128 ms QT Int : 398 ms P-R-T Axes : 070 -32 087 degrees QTc Int : 492 ms Normal sinus rhythm. Left axis deviation Nonspecific intraventricular block Possible Anterolateral infarct (cited on or before 25-MAR-2019) Abnormal ECG When compared with ECG of 27-MAY-2019 14:45, (Unconfirmed) Questionable change in initial forces of Lateral leads Confirmed by Yusef MOSS, Cruz Nunez ([id number]) on 05/29/2019 7:41:45 PM
[2019-05-28] MEDS: PRIMACOR 20 MG/D5W 100 ML 20 MG/100 ML IVPB IV SCH ×2 (06:23→17:25)
[2019-05-28] MEDS: LANOXIN PO SCH (08:39)
[2019-05-28] MEDS: ISORDIL PO SCH ×3 (08:39→17:23)
[2019-05-28] MEDS: LASIX IV SCH ×2 (08:39→13:41)
[2019-05-28] MEDS: COREG PO SCH ×2 (08:39→20:31)
[2019-05-28] MEDS: ELIQUIS PO SCH ×2 (08:40→20:31)
[2019-05-28] MEDS ORDERED: APRESOLINE PO SCH (09:00)
[2019-05-28] MEDS: APRESOLINE PO SCH ×2 (13:41→17:23)
--- NOTE | 2019-05-28 14:04 | PROGRESS NOTE ---
DATE: 05/28/2019 SUBJECTIVE: Patient denies shortness of breath on supplemental oxygen per nasal cannula. She still has tendency to sleep elevated due to orthopnea. Diuresis thus far has been somewhat limited. OBJECTIVE: Vital Signs: Blood pressure 131/71, heart rate 76, oxygen saturation 98% on nasal cannula oxygen at 2 L/minute. Neck: Jugular venous distention suggests central venous pressure of 10 to 12. Chest: Clear to auscultation bilaterally. Cardiac: Exam reveals a regular rate and rhythm with a grade 2/6 systolic murmur at the left ventricular apex. Gallop could not be appreciated. Extremities: Demonstrate moderate to severe pretibial edema. LABORATORY: Laboratory data for today is pending. IMPRESSION: 1. Acute on chronic systolic heart failure predominantly right-sided. 2. Severe cardiomyopathy with left ventricular ejection fraction of 15%. 3. Severe mitral regurgitation. 4. Chronic kidney disease. 5. Type 2 diabetes mellitus. 6. Longstanding hypertension. 7. Paroxysmal atrial fibrillation. 8. Hypothyroidism. RECOMMENDATIONS: 1. Continue intravenous milrinone. 2. Increase Lasix to 80 mg IV q.12 hours. 3. Continue beta-mahendra, but leave off sotalol given renal dysfunction and severe congestive heart failure. May need to consider amiodarone if atrial fibrillation recurs. 4. Increase hydralazine to 25 mg p.o. t.i.d. cc: Bear Phillips MD
[2019-05-28 14:20] LABS: CALCIUM 9.4 mg/dL (8.8-10.2); CREATININE 2.3 mg/dL (0.5-0.9); POTASSIUM 3.9 mmol/L (3.5-5.1)
--- NOTE | 2019-05-28 15:54 | PROGRESS NOTE ---
DATE: 05/28/2019 SUBJECTIVE: Ms. Arias was admitted yesterday. She is a patient of Dr. Car Crisostomo. Had a combination of problems when she presented. History of heart failure, chronic kidney disease. Presented to the emergency room. Primary complaint was shortness of breath. A 69-year-old female, short of breath for a couple days. Recently hospitalized approximately a week at [facility] for the same complaint, chronic congestive heart failure, mitral regurgitation, very low ejection fraction. The patient complains of fullness in her abdomen with some nausea, 3 to 4+ edema in her lower extremities which has gotten worse lately. Denies any vomiting. Her daughter said that she has been in the [facility] 3 weeks ago for edema. States she was given Lasix 40 mg a couple times a day. She was seen again in the [facility] and told to limit her Lasix because it was affecting her kidneys. Described dull, mild, aching pain which I think was consistent with hepatic congestion and has been there more or less for several months, a little worse now. Shortness of breath is worse, cannot sleep lying down, some orthopnea, and so admitted for exacerbation of congestive heart failure. She sitting up on side of the bed. Said she is feeling better. Her legs feel less swollen. Her abdomen feels less swollen. OBJECTIVE: Vital signs: Temperature 97.9 degrees, pulse 76, respirations 12, blood pressure 131/71. HEENT: Pupils are equal and round. Lungs: Clear in all lung staples. Cardiovascular: Regular rhythm and rate without murmur or S3. Urine output was 2600 mL. ASSESSMENT: 1. Acute on chronic systolic heart failure, predominantly right-sided. 2. Severe cardiomyopathy, left ventricular ejection fraction 15%. 3. Severe mitral regurgitation. 4. Chronic kidney disease. 5. Diabetes mellitus type 2. 6. Longstanding hypertension. 7. Paroxysmal atrial fibrillation, rate appears to be controlled. 8. Hypothyroidism. PLAN: Continue her Lasix 80 mg IV q.12. Continue beta mahendra. I am going to leave her off sotalol given her renal dysfunction, severe congestive heart failure, and cardiomyopathy. Consider amiodarone if atrial fibrillation continues. She is on hydralazine 25 mg t.i.d. We will follow her diabetes, her blood sugars. Follow her blood pressure. cc: Jorge Pardo MD
[2019-05-29] MEDS: CALMOSEPTINE OINTMENT TOP PRN (01:25)
[2019-05-29] MEDS: PRIMACOR 20 MG/D5W 100 ML 20 MG/100 ML IVPB IV SCH ×3 (03:05→22:36)
[2019-05-29] MEDS: TYLENOL PO PRN (06:45)
[2019-05-29] MEDS: APRESOLINE PO SCH ×3 (08:52→17:39)
[2019-05-29] MEDS: LANOXIN PO SCH (08:52)
[2019-05-29] MEDS: ISORDIL PO SCH ×3 (08:53→17:39)
[2019-05-29] MEDS: COREG PO SCH ×2 (08:53→20:44)
[2019-05-29] MEDS: ELIQUIS PO SCH ×2 (08:53→20:44)
[2019-05-29] MEDS: LASIX IV SCH ×2 (13:27)
--- NOTE | 2019-05-29 13:33 | PROGRESS NOTE ---
DATE: 05/29/2019 SUBJECTIVE: Ms. Arias says that she is breathing better. She does have a lot of congestion in her nose and sinuses, and asked for a nasal spray. I will put her on some guaifenesin. EXAMINATION: Vital Signs: Today, temperature 97.9 degrees, pulse 69, respirations 16, blood pressure 95/63. Last several blood pressure is 123/65, 109/74, 116/72. ASSESSMENT AND PLAN: 1. Acute on chronic systolic heart failure, predominantly right-sided. Seems to be responding to diuresis. 2. Severe cardiomyopathy with left ventricular ejection fraction of 15%. 3. Severe mitral regurgitation. 4. Chronic kidney disease. 5. Diabetes mellitus type 2. 6. Longstanding hypertension. 7. Paroxysmal atrial fibrillation. 8. Hypothyroidism. 9. I have increased her Lasix to 80 mg intravenous every 12 hours. Continue her beta mahendra and increased her hydralazine to 25 mg three times a day. I will add nasal spray and some guaifenesin. For diabetes mellitus type 2, continue to follow sugars. For history of paroxysmal atrial fibrillation, rate appears to be controlled. Renal function, her lab yesterday, creatinine was 2.3. We will repeat electrolytes and magnesium, CBC again in the morning. cc: Jorge Pardo MD
[2019-05-29 15:45] LABS: CALCIUM 9.2 mg/dL (8.8-10.2); POTASSIUM 3.8 mmol/L (3.5-5.1)
--- NOTE | 2019-05-29 16:10 | PROGRESS NOTE ---
DATE: 05/29/2019 SUBJECTIVE: Patient denies shortness of breath or chest discomfort on supplemental oxygen per nasal cannula. She still has some tendency for orthopnea which is chronic. She denies dizziness. OBJECTIVE: Vital Signs: Blood pressure 105/64, heart rate 78, oxygen saturation 99%. Neck: Jugular distention suggests elevated central venous pressure. Chest: Clear to auscultation bilaterally. Cardiac Exam: Reveals a regular rate and rhythm without appreciable gallop. Extremities: Demonstrate moderate to severe pretibial edema. LABORATORY DATA: Includes a sodium 139, potassium 3.8, chloride 100, carbon dioxide 29. BUN 46, creatinine 2.0, glucose 104. IMPRESSION: 1. Acute on chronic systolic heart failure, but only right-sided. 2. Severe cardiomyopathy with left ventricular ejection fraction of 15%. 3. Severe mitral regurgitation. 4. Acute on chronic renal dysfunction. Suspect component of cardiorenal syndrome. 5. Type 2 diabetes mellitus. 6. Longstanding hypertension. 7. Paroxysmal atrial fibrillation. 8. Hypothyroidism. RECOMMENDATIONS: 1. Continue intravenous milrinone. 2. Continue Lasix 80 mg IV q. 12 hours. 3. Continue carvedilol, hydralazine, isosorbide and digoxin. 4. Continue anticoagulation with Eliquis as tolerated. cc: Bear Phillips MD
[2019-05-30] MEDS: LASIX IV SCH ×2 (00:21→13:43)
[2019-05-30] MEDS: CALMOSEPTINE OINTMENT TOP PRN (00:22)
[2019-05-30] MEDS: TYLENOL PO PRN ×2 (04:21→10:09)
[2019-05-30 06:03] LABS: EOS# 0.06 X1000 (0.0-0.7); EOS% 1.5 % (0.0-10.0); HEMATOCRIT 34.6 % (37.0-47.0); HEMOGLOBIN 11.6 g/dL (12.0-16.0); LYMPH# 1.48 X1000 (1.2-3.4); LYMPH% 36.2 % (20.5-51.1); MCH 29.6 PG (27-31); MCHC 33.5 g/dL (33-37); MCV 88.3 FL (81-99); MONO% 9.8 % (1.7-9.3); MPV 10.3 FL (7.4-10.4); NEUT# 2.15 X1000 (1.4-6.5); NEUT% 52.5 % (42.2-75.2); PLT 89 X1000 (130-400); RBC 3.92 XMIL (4.2-5.4); RDW 15.8 % (11.5-14.5); WBC 4.09 X1000 (4.8-10.8)
[2019-05-30 06:24] LABS: CALCIUM 8.9 mg/dL (8.8-10.2); MAGNESIUM 1.5 mg/dL (1.5-2.7); POTASSIUM 3.6 mmol/L (3.5-5.1)
[2019-05-30] MEDS: PRIMACOR 20 MG/D5W 100 ML 20 MG/100 ML IVPB IV SCH ×2 (08:19→17:54)
[2019-05-30] MEDS: ELIQUIS PO SCH ×2 (09:23→21:21)
[2019-05-30] MEDS: LANOXIN PO SCH (09:23)
[2019-05-30] MEDS: APRESOLINE PO SCH ×3 (09:24→17:39)
[2019-05-30] MEDS: ISORDIL PO SCH ×3 (09:24→17:39)
[2019-05-30] MEDS: CORDARONE PO SCH ×2 (09:27→21:21)
--- NOTE | 2019-05-30 09:41 | PROGRESS NOTE ---
DATE: 05/30/2019 SUBJECTIVE: Patient denies shortness of breath or chest discomfort on supplemental oxygen per nasal cannula. She still has some apprehension regarding lying flat. There has been no postural dizziness. OBJECTIVE: Vital signs: Blood pressure 95/54, heart rate 83, oxygen saturation 99% on nasal cannula oxygen at 2 L/minute. Neck: Jugular venous pressure appears to be normal based on inspection of the neck veins. Chest: Clear to auscultation. Cardiac: Reveals a regular rate and rhythm with apical systolic murmur, unchanged. Extremities: Demonstrate mild pretibial edema. LABORATORY DATA: Includes a sodium 140, potassium 3.6, chloride 98, carbon dioxide 33, BUN 43, creatinine 2.0, glucose 117. White blood cell count 4.01, hematocrit 34.6, hemoglobin 11.6, platelet count 89,000. IMPRESSION: 1. Acute on chronic systolic heart failure, predominantly right-sided. 2. Severe cardiomyopathy with left ejection fraction 15%. 3. Severe mitral regurgitation. 4. Acute on chronic renal dysfunction, probably component of cardiorenal syndrome. 5. Type 2 diabetes mellitus. 6. Hypertension. 7. Paroxysmal atrial fibrillation. 8. Hypothyroidism. RECOMMENDATIONS: 1. Continue milrinone another 24 hours. 2. Continue IV Lasix q.12 hours for another 24 hours. 3. Continue carvedilol, hydralazine and isosorbide as well as digoxin. 4. Continue anticoagulation with Eliquis as tolerated. cc: Bear Phillips MD
--- NOTE | 2019-05-30 13:32 | PROGRESS NOTE ---
DATE: 05/30/2019 SUBJECTIVE: Ms. Arias feels like she is better. She can tell she has lost some fluids. Decreased swelling in her lower extremities. OBJECTIVE: Temperature 98.1 degrees, pulse 83, respirations 20, and blood pressure 117/77. Pupils are equal and round. Lungs are clear in all lung staples. Cardiovascular regular rhythm and rate without murmur or S3. Abdomen is soft. Skin is warm and dry. Urine output is a little over 9 L. ASSESSMENT AND PLAN: 1. Acute on chronic systolic heart failure predominantly right-sided. 2. Severe cardiomyopathy with left ejection fraction about 15%. 3. Severe mitral regurgitation. 4. Acute on chronic renal dysfunction, probably component of cardiorenal syndrome. 5. Diabetes mellitus type 2. Sugars under good control. 6. Hypertension. 7. Paroxysmal atrial fibrillation. 8. History of hypothyroidism. REVIEW OF ORDERS: I do not see any significant change. REVIEW OF LABORATORY: Electrolytes look good. Serum creatinine is down to 2.0. Continue diuresis. cc: Jorge Pardo MD
[2019-05-30] MEDS ORDERED: TOPROL XL PO ONE (18:00)
[2019-05-31] MEDS: LASIX IV SCH ×2 (01:04→12:43)
[2019-05-31] MEDS: PRIMACOR 20 MG/D5W 100 ML 20 MG/100 ML IVPB IV SCH ×3 (04:07→13:54)
[2019-05-31] MEDS: ELIQUIS PO SCH ×2 (08:06→20:25)
[2019-05-31] MEDS: TYLENOL PO PRN ×2 (08:06→16:30)
[2019-05-31] MEDS: LANOXIN PO SCH (08:06)
[2019-05-31] MEDS: CORDARONE PO SCH ×2 (08:06→20:25)
[2019-05-31] MEDS: APRESOLINE PO SCH ×3 (08:06→16:35)
[2019-05-31] MEDS: ISORDIL PO SCH ×3 (08:06→16:35)
--- NOTE | 2019-05-31 10:37 | PROGRESS NOTE ---
DATE: 05/31/2019 SUBJECTIVE: Ms. Arias is sleeping. She is easy to arouse. Says she is breathing good, feeling better. OBJECTIVE: Vital signs: Remains afebrile, temperature 97.6 degrees, pulse 85, respirations 17, blood pressure 114/72. HEENT: Pupils are equal round. Lungs: Clear in all lung staples. Cardiovascular: Regular rhythm and rate without murmur or S3. Abdomen: Soft. Skin: Warm and dry, URINE OUTPUT: 4400 mL. ASSESSMENT AND PLAN: 1. Acute on chronic systolic heart failure, predominantly right-sided. 2. Severe cardiomyopathy with left-side ejection fraction 15%. 3. Severe mitral regurgitation. 4. Acute on chronic renal dysfunction, probably a component of cardiorenal syndrome. 5. Diabetes mellitus type 2. 6. Hypertension. 7. Paroxysmal atrial fibrillation. 8. History of hypothyroidism. REVIEW OF HER ORDERS: She is on amiodarone 200 mg twice a day, Eliquis 5 mg twice a day, digoxin 125 mcg p.o. daily, Lasix 80 mg IV q.12, hydralazine 25 mg p.o. t.i.d., isosorbide dinitrate 10 mg t.i.d., milrinone 20 mg, she is getting a drip and she is getting 0.375 mcg/kg/ minute. LABORATORY DATA: This morning, creatinine is down to 2.0. Sodium was 140, potassium 3.6, chloride 98, BUN 43, creatinine 2.0. Her TSH was 11.51. We will check a T4, and her magnesium was 1.5. cc: Jorge Pardo MD
[2019-05-31] MEDS ORDERED: NORCO-7.5 PO ONE (22:07)
[2019-06-01] MEDS: LASIX IV SCH ×2 (00:37→13:08)
[2019-06-01] MEDS: PRIMACOR 20 MG/D5W 100 ML 20 MG/100 ML IVPB IV SCH ×3 (02:51→20:26)
[2019-06-01] MEDS ORDERED: ZOFRAN IV PRN (04:21)
[2019-06-01 06:07] LABS: CALCIUM 8.4 mg/dL (8.8-10.2); CREATININE 1.7 mg/dL (0.5-0.9); MAGNESIUM 1.4 mg/dL (1.5-2.7); POTASSIUM 4.1 mmol/L (3.5-5.1)
--- NOTE | 2019-06-01 08:58 | PROGRESS NOTE ---
DATE: 06/01/2019 SUBJECTIVE: Ms. Arias is feeling better, breathing is better. She is eating. Bowels are moving. OBJECTIVE: Temperature 98 degrees, pulse 69, respirations 12, blood pressure 116/74. Pupils are equal and round. Lungs are clear in all lung staples. Cardiovascular Examination: Regular rhythm and rate without murmur or S3. Abdomen is soft. Skin is warm and dry. Weight 186 pounds. Urine output was 3600 mL. ASSESSMENT AND PLAN: 1. Acute on chronic systolic heart failure, predominantly right-sided. Symptoms improving. Breathing better. Swelling going down in her legs. 2. Severe cardiomyopathy with left ventricular ejection fraction at 15%. 3. Severe mitral regurgitation. 4. Acute on chronic renal dysfunction, probably component of cardiorenal syndrome. 5. Diabetes mellitus type 2. 6. Hypertension. 7. Paroxysmal atrial fibrillation. 8. History of hypothyroidism. LABORATORY DATA: From this morning, looks good. Sodium 137, potassium 4.1, chloride 93, BUN is 44, creatinine 1.7 so creatinine has come down nicely from 2.0. Continue present regimen. cc: Jorge Pardo MD
[2019-06-01] MEDS: ISORDIL PO SCH ×3 (09:30→17:07)
[2019-06-01] MEDS: APRESOLINE PO SCH ×3 (09:30→17:07)
[2019-06-01] MEDS: CORDARONE PO SCH ×2 (09:31→20:23)
[2019-06-01] MEDS: ELIQUIS PO SCH ×2 (09:31→20:23)
[2019-06-01] MEDS: LANOXIN PO SCH (09:31)
--- NOTE | 2019-06-01 12:06 | Diag Imaging Result Doc PS360 ---
EXAM: CHEST-PORTABLE INDICATION: chf TECHNIQUE: One view COMPARISON: 05/27/2019 FINDINGS: There is stable subsegmental atelectasis at the left lower lung zone. There has been improvement of the mild pulmonary venous congestion and mild interstitial edema. No new consolidation is identified. Cardiac silhouette is stable. IMPRESSION: Interval improvement. Electronically signed by Andrew Cardenas 06/01/2019 12:04 PM
[2019-06-02] MEDS: TYLENOL PO PRN ×2 (01:01→09:48)
[2019-06-02] MEDS: LASIX IV SCH ×2 (01:03→13:36)
[2019-06-02] MEDS: PRIMACOR 20 MG/D5W 100 ML 20 MG/100 ML IVPB IV SCH ×2 (05:38→05:58)
[2019-06-02 07:03] LABS: CALCIUM 8.7 mg/dL (8.8-10.2); POTASSIUM 3.8 mmol/L (3.5-5.1)
[2019-06-02] MEDS: APRESOLINE PO SCH ×3 (09:15→17:09)
[2019-06-02] MEDS: LANOXIN PO SCH (09:16)
[2019-06-02] MEDS: CORDARONE PO SCH ×2 (09:16→20:42)
[2019-06-02] MEDS: ISORDIL PO SCH ×3 (09:16→17:09)
[2019-06-02] MEDS: ELIQUIS PO SCH ×2 (09:16→20:43)
--- NOTE | 2019-06-02 10:06 | PROGRESS NOTE ---
DATE: 06/02/2019 SUBJECTIVE: Ms. Arias is doing much better, and her swelling has gone down in her feet. She would like to try and go home maybe tomorrow. OBJECTIVE: Vital Signs: Temp 98.6 degrees, pulse 76, respirations 13, blood pressure 116/65. HEENT: Pupils are equal and round. Lungs: Clear in all lung staples. Cardiovascular: Regular rhythm and rate without murmur or S3. Abdomen: Soft. Skin: Warm and dry. ASSESSMENT: 1. Acute on chronic systolic heart failure, predominantly right-sided symptoms. Doing much better with diuresis. 2. Severe cardiomyopathy. Left ventricular ejection fraction 50%. 3. Severe mitral regurgitation. 4. Acute on chronic renal dysfunction, probably a component of cardiorenal syndrome. 5. Diabetes mellitus type 2. 6. Hypertension. 7. Paroxysmal atrial fibrillation. 8. History of hypothyroidism. REVIEW OF LABORATORY DATA: Hematocrit 34, hemoglobin 11. Electrolytes look good. Creatinine is staying stable around 2. PLAN: Continue current diuresis. She could possibly go home tomorrow. She is on Milrinone drip, and will see what they want to do. She is on Cordarone 200 mg twice a day, Lanoxin 125 mcg daily, hydralazine 25 mg t.i.d., and isosorbide dinitrate 10 mg p.o. t.i.d. cc: Jorge Pardo MD
[2019-06-03] MEDS: LASIX IV SCH (00:43)
[2019-06-03 08:03] LABS: CALCIUM 8.3 mg/dL (8.8-10.2); POTASSIUM 4.2 mmol/L (3.5-5.1)
[2019-06-03] MEDS ORDERED: MAGNESIUM SULFATE 2 GM/S.W.I. 2 GM/50 ML IVPB IV ONE (10:22)
[2019-06-03] MEDS ORDERED: DESYREL PO PRN (10:23)
[2019-06-03] MEDS ORDERED: CARAFATE PO PRN (10:23)
[2019-06-03] MEDS: CORDARONE PO SCH (10:26)
[2019-06-03] MEDS: ISORDIL PO SCH ×3 (10:26→16:52)
[2019-06-03] MEDS: APRESOLINE PO SCH ×3 (10:26→16:51)
[2019-06-03] MEDS: LANOXIN PO SCH (10:27)
[2019-06-03] MEDS: ELIQUIS PO SCH ×2 (10:27→21:50)
--- NOTE | 2019-06-03 14:23 | PROGRESS NOTE ---
DATE: 06/03/2019 SUBJECTIVE: The patient is breathing a bit better. She seems overall improved. OBJECTIVE: Blood pressure is 123/69, heart rate 75, respiratory rate of 16, temperature was 97.9 degrees, 99% on 2 L. Cardiovascular: Regular rate and rhythm. Pulmonary: Bilateral breath sounds clear to auscultation. GI: Soft, nontender, nondistended. Bowel sounds were positive. She still has some pitting edema. It is a 1+. Her in's and out's, she has put out a total of 20 L with 1700 day before but the last 3 days, she has put out at least 2 L, almost 2 L every day. Her chest x-ray shows improving heart failure. PROBLEM LIST: 1. Acute on chronic systolic failure. It is described her ejection fraction is 50% but it is 15%. That was probably just a misinterpretation of 15. In any case, she seems to be doing okay. She is off milrinone. She is on medications as prescribed per cardiology. I will transition her to oral Lasix and I think if she is stable, she will go home tomorrow, although we may consider cardiology re-evaluation prior to discharge. She has severe mitral regurgitation so we will continue to follow. 2. Renal dysfunction. She has got chronic renal insufficiency but that seems to be stable based on her current numbers. 3. Type 2 diabetes, stable on her current medications. 4. Hypothyroidism is also stable, though his TSH is very low so I am going to check a free T4 and we will see how her numbers look. DISPOSITION: Anticipate discharge probably tomorrow if stable. I think, again, she is stable for the floor. cc: Dheeraj De Souza MD
[2019-06-03] MEDS ORDERED: MAGNESIUM SULFATE 1 GM/D5W 1 GM/100 ML IVPB IV ONE (15:14)
--- NOTE | 2019-06-03 15:53 | PROGRESS NOTE ---
DATE: 06/03/2019 SUBJECTIVE: Patient continues without chest discomfort or dyspnea on supplemental oxygen with nasal cannula. She has ambulated without dizziness. OBJECTIVE: Blood pressure 123/69, heart rate 69 and regular, and oxygen saturation 99%. There is no significant jugular venous distention. Chest is clear to auscultation. Cardiac exam is a regular rate and rhythm without appreciable murmur or gallop. Extremities are without edema. LABORATORY DATA: Sodium 134, potassium 4.2, chloride 91, carbon dioxide 28, BUN 50, creatinine 2, glucose 113 and magnesium 1.4. IMPRESSION: 1. Acute on chronic systolic heart failure predominantly right-sided. Patient is improved with diuresis. 2. Severe nonischemic cardiomyopathy with left ventricular ejection fraction of 15%. 3. Severe mitral regurgitation. 4. Acute on chronic renal dysfunction. A component of cardiorenal syndrome probably contributing. 5. Type 2 diabetes mellitus. 6. Hypertension. 7. Paroxysmal atrial fibrillation. Patient continues in sinus rhythm. 8. Hypothyroidism. RECOMMENDATIONS: 1. Reduce amiodarone to 200 mg daily. 2. Resume low-dose metoprolol. 3. Decrease Lasix to 40 mg p.o. daily. 4. Continue anticoagulation with Eliquis as tolerated. 5. The patient appears sufficiently improved to be discharged to home tomorrow morning. 6. Supplement magnesium. cc: Bear Phillips MD
[2019-06-03] MEDS ORDERED: LASIX PO SCH (21:00)
[2019-06-03] MEDS ORDERED: TOPROL XL PO SCH (21:00)
[2019-06-03] MEDS ORDERED: PRAVACHOL PO SCH (21:00)
[2019-06-04] MEDS: TYLENOL PO PRN (02:35)
[2019-06-04 05:44] LABS: ALBUMIN 3.7 g/dL (3.5-5.0); CALCIUM 8.7 mg/dL (8.8-10.2); PHOSPHORUS 3.2 mg/dL (2.7-4.5); POTASSIUM 4.5 mmol/L (3.5-5.1)
[2019-06-04] MEDS ORDERED: PRILOSEC PO SCH (07:00)
[2019-06-04] MEDS ORDERED: SYNTHROID PO SCH (07:00)
[2019-06-04] MEDS ORDERED: CORDARONE PO SCH (09:00)
[2019-06-04] MEDS ORDERED: FOLIC ACID PO SCH (09:00)
[2019-06-04] MEDS ORDERED: LASIX PO SCH (09:00)
[2019-06-04] MEDS ORDERED: MAG-OX PO SCH (09:00)
[2019-06-04] MEDS ORDERED: ALDACTONE PO SCH (09:00)
[2019-06-04] MEDS: ISORDIL PO SCH ×2 (10:00→12:51)
[2019-06-04] MEDS: LANOXIN PO SCH (10:03)
[2019-06-04] MEDS: ELIQUIS PO SCH (10:03)
[2019-06-04] MEDS: APRESOLINE PO SCH ×2 (10:06→12:51)
--- NOTE | 2019-06-04 13:13 | DISCHARGE SUMMARY ---
ADMISSION DATE: 05/27/2019 DISCHARGE DATE: 06/04/2019 DISCHARGE DIAGNOSES: 1. Acute congestive heart failure exacerbation systolic. 2. Acute kidney injury with chronic renal failure. Her kidney level, she is at 3B. 3. Hypothyroidism. 4. Diabetes. CONSULTATIONS: Cardiology, Dr. Phillips. PROCEDURES: None. Briefly, she is a 69-year-old female with CHF, presenting with 3 to 4+ edema. She sees the [facility] and had her medications adjusted. She was admitted for treatment. She was admitted by Dr. Crisostomo, but then transferred to [facility] for cardiology evaluation. She was placed on Milrinone, Lasix IV q. 12. All medications were adjusted. She was diuresed over several days. She had negative balance of -16. She has put out about 21 L of fluid. Her weight went from 196 down to 177. I am thinking most likely she at least about 19 pound weight loss which is consistent with her urine output. She is breathing 100% on 2 L the day of discharge. Her x-ray showed improvement. Dr. Phillips made some final recommendations on the and she will be discharged on those medications. [facility] with [facility] in 1 to 2 weeks for heart failure clinic. DISCHARGE MEDICATIONS: Trazodone 50, Carafate 1 g q. 6, Eliquis 5 b.i.d., Lasix 40 daily, Mag-Ox 400 daily, omeprazole 40 daily, Pravachol 40 at bedtime, Aldactone 25 daily, Synthroid 125 daily, Toprol-XL 25 daily, hydralazine 25 t.i.d., amiodarone 200 daily, folic acid 1 daily, Isordil 20 t.i.d., and digoxin 125 daily. Follow up with Dr. Crisostomo 1 to 2 weeks, in the [facility] in 2 to 4 weeks. DISCHARGE CONDITION: Stable. 32 minute discharge. cc: Dheeraj De Souza MD
[2019-06-04 15:22] VITALS: BP 105/61
== END 2019-06-04 16:56 | disposition home or self-care (01) | DRG 291 ==
LOC: P.ED 00:34 → P.MEDSURG 05:59 → SUATTDRO 05:59 → 2N 18:58 → 1N 06-03 17:46
PROVIDERS: ATTEND Internal Medicine